=== PATIENT | male | born 1935 | race Caucasian/White ===

== ENCOUNTER 2020-10-18 23:26 | Inpatient (IN) | payer MEDICARE ==
[2020-10-19] MEDS ORDERED: Sodium Chloride 0.9% 100 ML ONE (00:46)
[2020-10-19] MEDS ORDERED: cefTRIAXone\\ROCEPHIN 1 GM VIAL ONE (00:46)
[2020-10-19 00:53] LABS: Bacteria/HPF 3+ HPF (None Seen); Bilirubin 1+ (Negative); Blood, Urine 2+ (Negative); Clarity Extra Turbid (Clear); Glucose, Urine (Dipstick) Normal (Negative); Ketone, Urine Negative (Negative); Leukocyte 500 Leu/uL (Negative); Nitrite 1+ (Negative); Protein, Urine (Dipstick) 100 mg/dL (Neg-Trace); RBC/HPF 21-50 HPF (0-3); Specific Gravity, Urine 1.016 (1.002-1.036); Squamous Epithelial 0-3 HPF (0-3); WBC/HPF Greater than 50 HPF (0-3); pH, Urine 5.5 (5.0-9.0)
[2020-10-19 00:56] LABS: Band 17 % (5-11); Lymphocytes 1 % (21-51); MDiff Complete? YES; Macrocytosis SLIGHT = 6-15 cells (100X) (0-5/hpf); Mean Corpuscular HGB CONC 36.9 g/dL (32.0-36.0); Mean Corpuscular Hemoglobin 36.9 pg (27.0-31.0); Mean Platelet Volume 7.7 fL (7.4-10.4); Monocytes 5 % (0-10); Neutrophil 77 % (42-75); Platelet Count 166 thou/uL (130-400); Platelet Morphology Comment Appears Adequate; RBC Distribution Width 11.8 % (11.5-14.5); Red Blood Cell (RBC) Count 3.24 mill/uL (4.70-6.10); White Blood Cell (WBC) Count 26.9 thou/uL (4.8-10.8)
[2020-10-19 01:01] LABS: ALT (SGPT) 17 U/L (8-55); AST (SGOT) 24 U/L (5-34); Albumin 3.3 g/dL (3.4-4.8); Alkaline Phosphatase 78 U/L (40-110); Anion Gap 13 mmol/L (10-20); BUN (Urea Nitrogen) 35 mg/dL (8.4-25.7); Bilirubin, Total 0.8 mg/dL (0.2-1.2); Calc. Creatinine Clearance 0 mL/min (70-130); Calcium 8.7 mg/dL (7.8-10.44); Carbon Dioxide 26 mmol/L (23-31); Chloride 99 mmol/L (98-107); Estimated GFR-MDRD 43; Globulin 2.8 g/dL (2.4-3.5); Glucose 143 mg/dL (83-110); Potassium 3.5 mmol/L (3.5-5.1); Protein, Total 6.1 g/dL (5.8-8.1); Sodium 134 mmol/L (136-145)
[2020-10-19] MEDS ORDERED: Ondansetron ODT 4 MG TAB PO PRN (04:11)
[2020-10-19] MEDS ORDERED: Ondansetron PF 4 MG/2 ML Vial IVP PRN (04:11)
[2020-10-19] MEDS ORDERED: Calcium Carbonate 500 MG ChewTAB PO PRN (04:11)
[2020-10-19] MEDS ORDERED: Acetaminophen 650 MG Suppository PR PRN (04:11)
--- NOTE | 2020-10-19 04:15 | PDOC.HHP ---
Hospitalist HPI - History of Present Illness fever urinary retention History of Present Illness: Case of an 85y/o male with pmhx of htn and hld who comes to hospital due to urinary retention and fever. patient is extremely poor historian and who borught him to hospital is not present during my evaluation. patient states he was on his usual state of health until 2-3 days ago when he started to have some fever and difficulty voiding, this lather apparently got worse and patient was not able to void for a day for which he came to hospital for evaluation. and ed they placed a anderson which only got 300ml of urine but it had a foul smell and was very cloudy. patient also had parameters for sepsis for which hospitalist was called for further evaluation and management. Hospitalist ROS - Review of Systems All other systems reviewed; all pertinent +/- noted in HPI/Subj Hospitalist History - Past Surgical History Past Surgical History: reports: Appendectomy Other Surgical History: testicle removed - Social History Smoking Status: Never smoker Alcohol: reports: None Drugs: reports: none - Exam General Appearance: NAD, awake alert Eye: PERRL, anicteric sclera ENT: normocephalic atraumatic, no oropharyngeal lesions Neck: supple, symmetric, no JVD, no thyromegaly Heart: RRR, no murmur, no gallops Respiratory: CTAB, no wheezes, no rales, no ronchi Gastrointestinal: soft, non-distended, normal bowel sounds, tender to palpation Extremities: no cyanosis, no clubbing, no edema Skin: normal turgor, no lesions, no rashes Neurological: cranial nerve grossly intact, normal sensation to touch, no wea kness Musculoskeletal: normal tone, normal strength, no muscle wasting Psychiatric: normal affect, normal behavior, A&O x 3 Hospitalist Results - Labs Result Diagrams: 10/19/20 00:27 10/19/20 00: Lab results: WBC 26.9 thou/uL (4.8-10.8) H 10/19/20: Hgb 12.0 g/dL (14.0-18.0) L 10/19/20: Hct 32.4 % (42.0-52.0) L 10/19/20 00: MCV 100.0 fL (78.0-98.0) H 10/19/20 00:27 Plt Count 166 thou/uL (130-400) 10/19/20 00: Band Neuts % (Manual) 17 % (5-11) H 10/19/20 00:27 Sodium 134 mmol/L (136-145) L 10/19/20 00: Potassium 3.5 mmol/L (3.5-5.1) 10/19/20: Chloride 99 mmol/L (98-107) 10/19/20 00: Carbon Dioxide 26 mmol/L (23-31) 10/19/20: BUN 35 mg/dL (8.4-25.7) H 10/19/20: Creatinine 1.56 mg/dL (0.7-1.3) H 10/19/20: Glucose 143 mg/dL (83-110) H 10/19/20: Lactic Acid 1.3 mmol/L (0.5-2.2) 10/19/20: Calcium 8.7 mg/dL (7.8-10.44) 10/19/20 00: Total Bilirubin 0.8 mg/dL (0.2-1.2) 10/19/20: AST 24 U/L (5-34) 10/19/20: ALT 17 U/L (8-55) 10/19/20 00: Alkaline Phosphatase 78 U/L (40-110) 10/19/20 00: Serum Total Protein 6.1 g/dL (5.8-8.1) 10/19/20 00: Albumin 3.3 g/dL (3.4-4.8) L 10/19/20 00: Urine Ketones Negative mg/dL (Negative) 10/19/20 00:10 Urine Blood 2+ (Negative) A 10/19/20: Urine Nitrite 1+ (Negative) A 10/19/20:10 Ur Leukocyte Esterase 500 Arleen/uL (Negative) A 10/19/20: Urine RBC 21-50 HPF (0-3) A 10/19/20: Urine WBC Greater than 50 HPF (0-3) A 10/19/20 00: Ur Squamous Epith Cells 0-3 HPF (0-3) 10/19/20 00:10 Urine Bacteria 3+ HPF (None Seen) A 10/19/20 00:10 Hospitalist H&P A/P - Problem (1) Sepsis Code(s): A41.9 - SEPSIS, UNSPECIFIED ORGANISM Status: Acute (2) UTI (urinary tract infection) Status: Acute (3) CHRISTIAN (acute kidney injury) Code(s): N17.9 - ACUTE KIDNEY FAILURE, UNSPECIFIED Status: Acute - Plan Plan: Case of an 85y/o male with sepsis secondary to uti - elevated wbc + report of quantified fever at 103 + tachycardiac w a u/a consistent w uti - normal LA - f/u u/c and b/c - started on rocephin - ivfs christian - creatinine at 1.5 unclear base, will treat as acute - ivfs - renal u/s - f/u renal function and u/o - likely secondary to bph. prostatitis? - anderson cath placed - will start flomax
[2020-10-19 04:25] LABS: SARS-CoV-2 MS2 Positive; SARS-CoV-2 N Gene Negative; SARS-CoV-2 S Gene Negative; SARS-CoV-2 by NAA Not Detected (NotDetected); SARS-CoV-2 orf1ab Negative
[2020-10-19] MEDS: Sodium Chloride 0.9% 1,000 ML IV SCH ×2 (05:35→17:43)
[2020-10-19 05:45] VITALS: BMI 25.1
--- NOTE | 2020-10-19 08:10 | RAD ---
PORTABLE CHEST: INDICATION: Fever. FINDINGS: Lungs are clear. No infiltrate or vascular congestion. Heart and mediastinum unremarkable. IMPRESSION: No acute process. POS: OFF
--- NOTE | 2020-10-19 08:47 | ULT ---
BILATERAL RENAL ULTRASOUND: Date: 10/19/2020 HISTORY: Renal failure. FINDINGS: Both kidneys measure approximately 10.0 cm in length. No hydronephrosis. There is an exophytic cyst i n the superior right kidney measuring 1.0 cm. There is a hyperechoic mass in the mid right renal tiera ex measuring 1.0 cm. Left kidney unremarkable with no hydronephrosis or mass. Urinary bladder is contracted with Chavira catheter in place. IMPRESSION: 1. Small exophytic cyst right kidney. 2. Hyperechoic mass mid right renal cortex. 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 Recommend follow-up ultrasound to confirm stability or elective follow-up CT for further characterization. POS: OFF
[2020-10-19] MEDS: Enoxaparin Sodium 40 MG/0.4 ML SYRINGE SC SCH (10:03)
--- NOTE | 2020-10-19 16:43 | CT ---
CT Abdomen Pelvis WO Con 10/19/2020 4:20 PM HISTORY: UTI, leukocytosis. COMPARISON: None. Technique: Multiple contiguous axial CT images are obtained through the abdomen and pelvis without IV contrast. Coronal reformats are provided. FINDINGS: This examination is limited for the evaluation of solid organs and vascular structures due to the lac k of intravenous contrast. Lower Chest: Vascular calcifications are seen in the coronary arteries and visualized lower thoracic aorta. Heart is mildly enlarged. Tiny bilateral pleural effusions are present with associated minimal passive atelectasis. Liver: Subcentimeter too small to characterize hypodense lesion is seen in the posterior aspect poste rior segment right hepatic lobe. Gallbladder: Surgically absent. There is evidence of reservoir effect involving the intra and extrahe patic bile ducts. Pancreas: Low attenuation areas seen in the head of the pancreas on axial images, but this appears vo lume averaging with area of fat in this region on sagittal and coronal images and is not thought to represent a pancreatic lesion. Spleen: Grossly normal nonenhanced CT appearance. Adrenals: Grossly normal nonenhanced CT appearance. Kidneys, ureters, urinary bladder: Subcentimeter too small to characterize hypodense lesions seen in the posterior aspect midportion right kidney. Overall symmetric and nonspecific bilateral perinephric stranding is seen. No renal or ureteral calculi are seen bilaterally, and there is no destiny dence of hydronephrosis. Decompressed with Chavira catheter in place. Reproductive Organs: Prostate gland mildly enlarged measuring 5.1 cm in transverse dimensions. Lymph Nodes: No enlarged lymph nodes are seen by CT size criteria. Bowel: Evidence of colonic diverticulosis. Appendix: Not visualized, but there are no secondary signs to suggest appendicitis based on this none nhanced CT scan exam. Peritoneum/retroperitoneum: There is mild stranding and perinephric fluid in a presacral location. No fluid collection is seen. Vessels: Vascular calcifications are seen in the abdominal aorta and involving the iliac arteries. In cidental note is made of a retroaortic left renal vein.. Abdominal Wall: within normal limits. Bones: Multilevel degenerative changes are seen in the spine. Bilateral hip osteoarthritis is present degenerative change are also seen involving the sacroiliac joints bilaterally. IMPRESSION: 1. Tiny bilateral pleural effusions with associated passive atelectasis at each lung base. 2. Mild cardiomegaly. 3. Prominent vascular calcifications. 4. Subcentimeter too small to characterize hypodense lesion posterior segment right hepatic lobe and posterior aspect midportion right kidney. 5. Nonspecific bilateral perinephric stranding without hydronephrosis or perinephric fluid collection . No renal or ureteral calculi are seen bilaterally. Pyelonephritis cannot be excluded based on this nonenhanced CT scan examination. 6. Colonic diverticulosis. 7. Tiny amount of fluid and inflammatory stranding in a presacral location. 8. Postcholecystectomy changes.
--- NOTE | 2020-10-19 17:36 | PDOC.EVN ---
Event Note - Event Note Event Note: We will get a CT abdomen pelvis without contrast. We will continue current antibiotics. Prelim urine cultures indicate gram-negative rods.
[2020-10-19] MEDS: Acetaminophen 325 MG TAB PO PRN (18:02)
[2020-10-19] MEDS ORDERED: Tamsulosin HCl 0.4 MG CAP PO SCH (21:00)
[2020-10-19] MEDS ORDERED: FLU VACC QS2020-21(65YR UP)/PF 240 MCG/0.7 ML SYRINGE IM ONE (21:00)
[2020-10-19] MEDS: Atorvastatin Calcium 10 MG TAB PO SCH (22:08)
[2020-10-19] MEDS: Tamsulosin HCl 0.4 MG CAP PO SCH (22:08)
[2020-10-20] MEDS: Levothyroxine 150 MCG TAB PO SCH (05:50)
[2020-10-20 07:12] LABS: ALT (SGPT) 22 U/L (8-55); AST (SGOT) 23 U/L (5-34); Alkaline Phosphatase 95 U/L (40-110); Anion Gap 12 mmol/L (10-20); BUN (Urea Nitrogen) 21 mg/dL (8.4-25.7); Bilirubin, Total 0.5 mg/dL (0.2-1.2); Calc. Creatinine Clearance 56 mL/min (70-130); Calcium 8.4 mg/dL (7.8-10.44); Carbon Dioxide 24 mmol/L (23-31); Chloride 103 mmol/L (98-107); Estimated GFR-MDRD 69; Globulin 2.8 g/dL (2.4-3.5); Glucose 112 mg/dL (83-110); Protein, Total 5.8 g/dL (5.8-8.1); Sodium 136 mmol/L (136-145)
[2020-10-20 08:22] LABS: Mean Corpuscular HGB CONC 33.5 g/dL (32.0-36.0); Mean Corpuscular Hemoglobin 34.5 pg (27.0-31.0); Mean Platelet Volume 8.6 fL (7.4-10.4); Platelet Count 168 thou/uL (130-400); RBC Distribution Width 11.5 % (11.5-14.5); Red Blood Cell (RBC) Count 3.47 mill/uL (4.70-6.10)
[2020-10-20] MEDS ORDERED: Potassium Chloride 20 MEQ TAB PO SCH (08:45)
[2020-10-20] MEDS ORDERED: Potassium Chloride 10 MEQ in Premix Bag 1 BAG IVPB SCH (08:45)
[2020-10-20] MEDS: Enoxaparin Sodium 40 MG/0.4 ML SYRINGE SC SCH (08:53)
[2020-10-20] MEDS: Acetaminophen 325 MG TAB PO PRN (09:00)
[2020-10-20 09:28] LABS: Band 16 % (5-11); Lymphocytes 9 % (21-51); MDiff Complete? YES; Monocytes 6 % (0-10); Neutrophil 67 % (42-75); Platelet Morphology Comment Appears Adequate; Polychromasia MODERATE = 3-4 cells (100X) (0-2/hpf); Promyelocytes 1 % (0-0); Reactive Lymphocytes 1 % (0-10)
[2020-10-20] MEDS: cefTRIAXone\\ROCEPHIN 2 GM in Sodium Chloride 0.9% 100 ML IVPB SCH (13:51)
--- NOTE | 2020-10-20 15:06 | PDOC.HOSPP ---
- Subjective Encounter Date: 10/20/20 Encounter Time: 11:15 Subjective: Patient up in chair no complaints. - Objective Vital Signs & Weight: Vital Signs (12 hours) Temp Pulse Resp BP BP Pulse Ox 10/20/20 08:00 93 L 10/20/20 07:11 99.2 F 88 17 152/77 H 93 L 10/20/20 04:00 99.8 F H 84 20 150/73 H 93 L Weight Weight 165 lb 5.547 oz I&O: 10/19/20 10/20/20 10/21/20 06:59 06:59 06:59 Intake Total 1300 320 Output Total 1250 300 Balance 50 20 Result Diagrams: 10/20/20 06:31 10/20/20 06:31 Hospitalist ROS - Review of Systems Cardiovascular: denies: chest pain, palpitations, orthopnea, paroxysmal noc. dyspnea, edema, light headedness, other Gastrointestinal: denies: nausea, vomiting, abdominal pain, diarrhea, constipation, melena, hematochezia, other Genitourinary: denies: dysuria, frequency, incontinence, hematuria, retention, other - Medication Medications: Active Medications Generic Name Dose Route Start Last Admin Trade Name Freq PRN Reason Stop Dose Admin Acetaminophen 650 mg 10/19/20 04:11 10/20/20 09:00 Acetaminophen 325 Mg Tab PO 650 mg Q4H PRN Administration Headache/Fever/Mild Pain (1-3) Atorvastatin Calcium 10 mg 10/19/20 21:00 10/19/20 22:08 Atorvastatin Calcium 10 Mg Tab PO 10 mg HS CHASIDY Administration Enoxaparin Sodium 40 mg 10/19/20 09:00 10/20/20 08:53 Enoxaparin Sodium 40 Mg/0.4 Ml Syringe SC 40 mg 0900 CHASIDY Administration Ceftriaxone Sodium 2 gm/ 100 mls @ 200 mls/hr 10/20/20 12:00 10/20/20 13:51 Sodium Chloride IVPB 100 mls Q24HR CHASIDY Administration Levothyroxine Sodium 150 mcg 10/20/20 06:00 10/20/20 05:50 Levothyroxine 150 Mcg Tab PO 150 mcg 0600 CHASIDY Administration Pantoprazole Sodium 40 mg 10/20/20 09:00 10/20/20 08:54 Pantoprazole 40 Mg Tab PO 40 mg DAILY CHASIDY Administration Tamsulosin HCl 0.4 mg 10/19/20 21:00 10/19/20 22:08 Tamsulosin Hcl 0.4 Mg Cap PO 0.4 mg HS CHASIDY Administration - Exam Neck: negative: supple, symmetric, no JVD, no thyromegaly, no lymphadenopathy, no carotid bruit, JVD Heart: negative: RRR, no murmur, no gallops, no rubs, normal peripheral pulses, irregular, diminshed peripheral pulses, murmur present, II/IV, III/IV Respiratory: negative: CTAB, no wheezes, no rales, no ronchi, normal chest expansion, no tachypnea, normal percussion, rales, rhonchi, tachypneic, wheezes Gastrointestinal: negative: soft, non-tender, non-distended, normal bowel sounds, no palpable masses, no hepatomegaly, no splenomegaly, no bruit, no guarding, no rigidity, tender to palpation, distended, diminished bowl sounds, voluntary guarding Hosp A/P (1) Pyelonephritis Code(s): N12 - TUBULO-INTERSTITIAL NEPHRITIS, NOT SPCF ACUTE OR CHRONIC Status: Acute (2) Sepsis Code(s): A41.9 - SEPSIS, UNSPECIFIED ORGANISM Status: Acute (3) Leukocytosis Code(s): D72.829 - ELEVATED WHITE BLOOD CELL COUNT, UNSPECIFIED Status: Acute (4) Hypokalemia Code(s): E87.6 - HYPOKALEMIA Status: Acute (5) Lesion of right [place] kidney Code(s): N28.9 - DISORDER OF KIDNEY AND URETER, UNSPECIFIED Status: Acute - Plan Patient has a hypodense lesion in the posterior aspect of the midportion of the right kidney. I did mention this to the patient's family member and recommended outpatient follow-up. We will continue ceftriaxone for now cultures indicated E. coli will await for sensitivities. However CT abdomen pelvis noncontrast indicated nonspecific bilateral perinephric stranding without hydronephrosis. Will discontinue patient's Chavira catheter and see if he voids.
[2020-10-20] MEDS: Atorvastatin Calcium 10 MG TAB PO SCH (21:07)
[2020-10-20] MEDS: HYDROcodone/Acetaminophen 5/325 mg Tablet PO PRN (21:07)
[2020-10-20] MEDS: Tamsulosin HCl 0.4 MG CAP PO SCH (21:07)
[2020-10-21] MEDS: Levothyroxine 150 MCG TAB PO SCH (05:24)
[2020-10-21 06:51] LABS: Hemoglobin 10.8 g/dL (14.0-18.0); Mean Corpuscular HGB CONC 35.4 g/dL (32.0-36.0); Mean Corpuscular Hemoglobin 36.9 pg (27.0-31.0); Mean Platelet Volume 7.8 fL (7.4-10.4); Platelet Count 186 thou/uL (130-400); RBC Distribution Width 12.3 % (11.5-14.5); Red Blood Cell (RBC) Count 2.92 mill/uL (4.70-6.10); White Blood Cell (WBC) Count 17.1 thou/uL (4.8-10.8)
[2020-10-21 07:07] LABS: Anion Gap 11 mmol/L (10-20); BUN (Urea Nitrogen) 17 mg/dL (8.4-25.7); Calc. Creatinine Clearance 62 mL/min (70-130); Calcium 8.2 mg/dL (7.8-10.44); Carbon Dioxide 26 mmol/L (23-31); Chloride 107 mmol/L (98-107); Estimated GFR-MDRD 77; Glucose 97 mg/dL (83-110); Potassium 3.8 mmol/L (3.5-5.1); Sodium 140 mmol/L (136-145)
[2020-10-21 08:29] LABS: Band 15 % (5-11); Eosinophils 1 % (0-10); Lymphocytes 10 % (21-51); MDiff Complete? YES; Metamyelocyte 1 % (0-0); Monocytes 2 % (0-10); Neutrophil 71 % (42-75); Platelet Morphology Comment Appears Adequate; Polychromasia SLIGHT = 2-3 cells (100X) (0-2/hpf)
[2020-10-21] MEDS: Enoxaparin Sodium 40 MG/0.4 ML SYRINGE SC SCH (08:33)
[2020-10-21] MEDS: HYDROcodone/Acetaminophen 5/325 mg Tablet PO PRN (08:37)
[2020-10-21] MEDS: cefTRIAXone\\ROCEPHIN 2 GM in Sodium Chloride 0.9% 100 ML IVPB SCH (12:03)
--- NOTE | 2020-10-21 14:18 | CON ---
DATE OF CONSULTATION: 10/21/2020 REASON FOR CONSULTATION: Penile pain. CHIEF COMPLAINT: Penile pain. HISTORY OF PRESENT ILLNESS: This is an 85-year-old male, who I have previously seen for enlarged prostate with lower urinary tract symptoms. He was last seen on September 26, 2019, at which point, we elected to continue his tamsulosin. He canceled his followup with me in September 24. He tells me that he developed bladder pain and difficulty urinating this past Monday, at which point, he presented to the emergency room. A catheter was placed draining only 300 mL of urine. However, he met criteria for sepsis due to urinary tract infection and was admitted. He tells me that he has had significant pain in his penis ever since having his catheter placed and notes that his foreskin was not reduced after the initial placement. The catheter was removed yesterday and then replaced as he was unable to urinate. The foreskin was not replaced at this point either. Wound Care has seen the patient and has documented with photography his paraphimosis, but again no action was taken. I was contacted by his [id number], who called my office telling me that he was having this significant penile pain and requested that I see him. In speaking with him today, he tells me that he continues to have the same pain in his penis, but denies bladder pain, flank pain, nausea, or fevers. PAST MEDICAL HISTORY: Reflux, hyperlipidemia, hypothyroidism. SURGICAL HISTORY: Orchiectomy, appendectomy. SOCIAL HISTORY: Nonsmoker. No substance abuse. REVIEW OF SYSTEMS: 12-point review of systems negative except as mentioned in my HPI. PHYSICAL EXAMINATION: GENERAL: No acute distress, conversant. HEENT: Head, normocephalic and atraumatic. Extraocular movements intact. Sclerae anicteric. NECK: Supple. Trachea midline. LUNGS: Unlabored breathing. Symmetric chest expansion. HEART: Regular rate and rhythm. ABDOMEN: Soft, nontender, nondistended. No flank tenderness. No suprapubic tenderness. : Chavira catheter in good position draining yellow urine. He clearly has paraphimosis with his foreskin not reduced and distal edema. SKIN: Warm and dry. EXTREMITIES: No peripheral edema or clubbing. NEUROLOGIC: Alert and oriented x3. PSYCHIATRIC: Normal mood and affect. IMAGING DATA: I personally reviewed his CT scan, which shows Chavira catheter in position and small cyst in his kidney. LABORATORY DATA: Reviewed. White count 26 on admission and 17.1 today. Creatinine 1.56 on admission, 0.93 today. Urine culture has resulted with E coli and Enterobacter, both susceptible to ceftriaxone, which he is currently on. PROCEDURE: I reduced the edema in his distal shaft and was able to replace the foreskin/reduce the foreskin. This was very uncomfortable for him given the length of time that this has been present. ASSESSMENT AND PLAN: Urinary retention, enlarged prostate with lower urinary tract symptoms, acute cystitis, paraphimosis. Paraphimosis has been reduced. I spoke with the charge nurse about proper education on replacing the foreskin after catheter placement as this is not an event that should occur. Given his urine susceptibilities, it appears he can be discharged with Bactrim for 10 days. Continue tamsulosin. I will arrange followup for Chavira removal next week in my office. Job ID: [id number]
--- NOTE | 2020-10-21 15:32 | PDOC.HOSPP ---
- Subjective Encounter Date: 10/21/20 Encounter Time: 10:30 Subjective: Patient up in bed states he feels much better. - Objective Vital Signs & Weight: Vital Signs (12 hours) Temp Pulse Resp BP Pulse Ox 10/21/20 12:00 98.4 F 82 18 150/68 H 92 L 10/21/20 08:00 98.9 F 93 18 175/79 H 95 10/21/20 05:25 98.2 F Weight Weight 165 lb 5.547 oz I&O: 10/20/20 10/21/20 10/22/20 06:59 06:59 06:59 Intake Total 1300 800 Output Total 1250 800 Balance 50 0 Result Diagrams: 10/21/20 06:23 10/21/20 06:23 Hospitalist ROS - Review of Systems Respiratory: denies: cough, dry, shortness of breath, hemoptysis, SOB with excertion, pleuritic pain, sputum, wheezing, other Cardiovascular: denies: chest pain, palpitations, orthopnea, paroxysmal noc. dyspnea, edema, light headedness, other Gastrointestinal: denies: nausea, vomiting, abdominal pain, diarrhea, constipation, melena, hematochezia, other - Medication Medications: Active Medications Generic Name Dose Route Start Last Admin Trade Name Freq PRN Reason Stop Dose Admin Acetaminophen 650 mg 10/19/20 04:11 10/20/20 09:00 Acetaminophen 325 Mg Tab PO 650 mg Q4H PRN Administration Headache/Fever/Mild Pain (1-3) Hydrocodone Bitart/Acetaminophen 1 tab 10/19/20 04:11 10/21/20 08:37 Hydrocodone/Acetaminophen 5/325 Mg Tablet PO 1 tab Q4H PRN Administration Moderate Pain (4-6) Atorvastatin Calcium 10 mg 10/19/20 21:00 10/20/20 21:07 Atorvastatin Calcium 10 Mg Tab PO 10 mg HS CHASIDY Administration Enoxaparin Sodium 40 mg 10/19/20 09:00 10/21/20 08:33 Enoxaparin Sodium 40 Mg/0.4 Ml Syringe SC 40 mg 0900 CHASIDY Administration Ceftriaxone Sodium 2 gm/ 100 mls @ 200 mls/hr 10/20/20 12:00 10/21/20 12:03 Sodium Chloride IVPB 100 mls Q24HR CHASIDY Administration Levothyroxine Sodium 150 mcg 10/20/20 06:00 10/21/20 05:24 Levothyroxine 150 Mcg Tab PO 150 mcg 0600 CHASIDY Administration Pantoprazole Sodium 40 mg 10/20/20 09:00 10/21/20 08:33 Pantoprazole 40 Mg Tab PO 40 mg DAILY CHASIDY Administration Tamsulosin HCl 0.4 mg 10/19/20 21:00 10/20/20 21:07 Tamsulosin Hcl 0.4 Mg Cap PO 0.4 mg HS CHASIDY Administration - Exam Neck: negative: supple, symmetric, no JVD, no thyromegaly, no lymphadenopathy, no carotid bruit, JVD Heart: negative: RRR, no murmur, no gallops, no rubs, normal peripheral pulses, irregular, diminshed peripheral pulses, murmur present, II/IV, III/IV Respiratory: negative: CTAB, no wheezes, no rales, no ronchi, normal chest expansion, no tachypnea, normal percussion, rales, rhonchi, tachypneic, wheezes Gastrointestinal: negative: soft, non-tender, non-distended, normal bowel sounds, no palpable masses, no hepatomegaly, no splenomegaly, no bruit, no guarding, no rigidity, tender to palpation, distended, diminished bowl sounds, voluntary guarding Hosp A/P (1) Pyelonephritis Code(s): N12 - TUBULO-INTERSTITIAL NEPHRITIS, NOT SPCF ACUTE OR CHRONIC Sta tus: Acute (2) Sepsis Code(s): A41.9 - SEPSIS, UNSPECIFIED ORGANISM Status: Acute (3) Leukocytosis Code(s): D72.829 - ELEVATED WHITE BLOOD CELL COUNT, UNSPECIFIED Status: Acute (4) Hypokalemia Code(s): E87.6 - HYPOKALEMIA Status: Acute (5) Lesion of right [place] kidney Code(s): N28.9 - DISORDER OF KIDNEY AND URETER, UNSPECIFIED Status: Acute (6) Phimosis of penis Code(s): N47.1 - PHIMOSIS Status: Acute - Plan Patient has a hypodense lesion in the posterior aspect of the midportion of the right kidney. I did mention this to the patient's family member and recommended outpatient follow-up. We will continue ceftriaxone for now cultures indicated E. coli will await for sensitivities. However CT abdomen pelvis noncontrast indicated nonspecific bilateral perinephric stranding without hydronephrosis. Will discontinue patient's Chavira catheter and see if he voids. 10/21 patient's antibiotic sensitive to ciprofloxacin was sent home with that. Still has a significant leukocytosis unsure of this is mild dysplastic syndrome versus currently resolving infection. Will monitor for 1 more day. Family updated. Urology at bedside to decompress the phimosis Chavira catheter reinserted last night. Patient will follow up with urology as an outpatient.
[2020-10-21] MEDS: Tamsulosin HCl 0.4 MG CAP PO SCH (20:15)
[2020-10-21] MEDS: Atorvastatin Calcium 10 MG TAB PO SCH (20:15)
[2020-10-22] MEDS: Levothyroxine 150 MCG TAB PO SCH (05:01)
[2020-10-22 05:31] LABS: Anion Gap 13 mmol/L (10-20); BUN (Urea Nitrogen) 16 mg/dL (8.4-25.7); Calc. Creatinine Clearance 67 mL/min (70-130); Calcium 8.4 mg/dL (7.8-10.44); Carbon Dioxide 25 mmol/L (23-31); Chloride 106 mmol/L (98-107); Estimated GFR-MDRD 86; Glucose 108 mg/dL (83-110); Potassium 3.6 mmol/L (3.5-5.1); Sodium 140 mmol/L (136-145)
[2020-10-22 05:39] LABS: Band 9 % (5-11); Eosinophils 2 % (0-10); Hemoglobin 11.7 g/dL (14.0-18.0); Hypochromia SLIGHT = 6-15 cells (100X) (0-5/hpf); Lymphocytes 11 % (21-51); MDiff Complete? YES; Macrocytosis SLIGHT = 6-15 cells (100X) (0-5/hpf); Mean Corpuscular HGB CONC 35.9 g/dL (32.0-36.0); Mean Platelet Volume 7.4 fL (7.4-10.4); Monocytes 6 % (0-10); Neutrophil 72 % (42-75); Platelet Count 196 thou/uL (130-400); Platelet Morphology Comment Appears Adequate; RBC Distribution Width 11.9 % (11.5-14.5); Red Blood Cell (RBC) Count 3.15 mill/uL (4.70-6.10); White Blood Cell (WBC) Count 12.9 thou/uL (4.8-10.8)
[2020-10-22] MEDS: Enoxaparin Sodium 40 MG/0.4 ML SYRINGE SC SCH (08:06)
[2020-10-22 11:22] VITALS: BP 159/78; TEMP 98.3
--- NOTE | 2020-10-23 02:59 | DIS ---
DATE OF ADMISSION: 10/19/2020 DATE OF DISCHARGE: 10/22/2020 DISCHARGE DIAGNOSES: 1. Sepsis, resolved. 2. Pyelonephritis. 3. Leukocytosis. 4. Phimosis of penis. HOSPITAL COURSE: The patient is an 85-year-old male, who initially presented to the hospital on 10/19, with complaints of fever and urinary retention. At this time, Chavira catheter was inserted in the ER. He did undergo a CT of abdomen and pelvis, which indicated stranding around his kidneys. He also was noted to have a hypodense lesion in the posterior segment of the right hepatic lobe and also was noted to have a hypodense lesion to the posterior aspect of the midportion of the right kidney. I did discuss this with the patient's [id number] and updated her about this. At this time, patient was put on IV antibiotics. His cultures indicated E. coli and Enterobacter aerogenes. The patient at this time was put on oral antibiotics and discharged home. Since he has the phimosis, Urology reduced that and we had to reinsert the Chavira, since the patient was unable to urinate after the discontinuing of the Chavira. He will follow up with Urology next week for the catheter removal. HOME MEDICATIONS: Will be as of the followin. Cipro 500 mg b.i.d. 2. Florastor 250 daily. 3. Atorvastatin 10 mg daily. 4. Flomax 0.4 at bedtime. 5. Levothyroxine 150 mcg daily. 6. Omeprazole 20 mg daily. PHYSICAL EXAMINATION: VITAL SIGNS: On discharge, temperature 98.3, 78, 18, 93% on room air, 159/78. GENERAL: He is awake, alert, and oriented x3. Does not appear in distress. CV: S1, S2 present. No murmurs, rubs, or gallops. The patient will be discharged. Follow up with primary and Urology. Job ID: [id number]
== END 2020-10-22 13:03 | disposition home or self-care (01) | DRG 872 ==
LOC: ERS 23:26 → T4-B 10-19 02:34 → OBSVTOIN 10-19 10:13
PROVIDERS: ADMIT Internal Medicine; ATTEND Internal Medicine
PROC: 0T9B70Z Drainage of Bladder with Drainage Device, Via Natural or Artificial Opening (ICD-10-PCS; principal; 2020-10-19)
DX: A41.51 Sepsis due to Escherichia coli [E. coli] (principal); N12 Tubulo-interstitial nephritis, not specified as acute or chronic; N17.9 Acute kidney failure, unspecified; Z20.828 Contact with and (suspected) exposure to other viral communicable diseases; Z23 Encounter for immunization; N47.1 Phimosis; K76.89 Other specified diseases of liver; N28.89 Other specified disorders of kidney and ureter; I10 Essential (primary) hypertension; E78.5 Hyperlipidemia, unspecified; Z90.49 Acquired absence of other specified parts of digestive tract; Z79.899 Other long term (current) drug therapy; Z79.890 Hormone replacement therapy
CPT/HCPCS: 36415; 51702; 71045; 74176; 76770; 80048; 80053; 81003; 81015; 83605; 85007; 85025; 85027; 87040; 87077; 87086; 87186; 87635; 87804; 96365; J0696; J1650; J3480; J3490; U0003

== ENCOUNTER 2020-12-01 08:55 | Inpatient (IN) | payer MEDICARE ==
--- NOTE | 2020-12-01 09:28 | CT ---
CT Brain WO Con History: Slip and fall. Trauma Comparison: None. Findings: Longitudinal temporal bone fracture through the mastoids on the right with hemorrhage withi n the mastoid air cells and within the internal auditory canal. Subtle subarachnoid hemorrhage within the left superior frontal sulcus. There is also subdural hemorr kena along the falx anteriorly and the tentorium cerebelli. Extensive chronic microangiopathic changes. No midline shift or mass effect. Subarachnoid hemorrhage is present along the inferior margin of both frontal lobes. Impression: 1. Longitudinal fracture right mastoids with intramastoid hemorrhage as well as hemorrhage within the internal auditory canal. Dedicated temporal bone CT recommended. 2. Subarachnoid hemorrhage along the left superior frontal sulcus as well as along the inferior melanie ns of both right and left frontal poles of the frontal lobes. 3. Subdural hemorrhage along the anterior falx and tentorium cerebelli. ER physician notified of findings via telephone at 9:23 AM.
--- NOTE | 2020-12-01 09:33 | CT ---
CT CERVICAL SPINE NONCONTRAST: DATE: 12/01/2020 HISTORY: cervical trauma. 85-year-old male status post fall. FINDINGS: There is incomplete visualization of significant partial opacification of right middle ear cavity, ri ght mastoid antrum, and some of right mastoid air cells, as well as right external auditory canal. There is subcutaneous emphysema in the right parapharyngeal space, which may be arising from right mi ddle ear cavity or right mastoid air cells. There are no jumped or perched facets. There is no evidence of acute cervical spine fracture. The verito tebral body heights are maintained. There is no prevertebral soft tissue swelling. There are degenerative disc changes and facet osteoarthrosis. IMPRESSION: 1.) Suspected right temporal bone fracture. Recommend temporal bone CT. 2) Cervical spondylosis. 3) no evidence of acute fracture or acute traumatic subluxation of cervical spine.
--- NOTE | 2020-12-01 10:07 | CT ---
TEMPORAL BONE CT WITHOUT CONTRAST: HISTORY: Trauma. Fall. Pain. FINDINGS: Adequate aeration of the paranasal sinuses. Visualized orbits are grossly unremarkable. There is evidence of right periorbital hematoma. Right IAC/temporal bones: The internal auditory canal, cochlea, vestibule and semicircular canals have an appropriate appearanc e and configuration. Vestibular aqueduct is not enlarged. There is opacification of the middle ear. Ossicular chain is intact. Stapedial footplate is appropriately located. Tegmen tympani and tegmen ma stoideum are preserved. There is a longitudinal fracture involving the right temporal bone. Partial opacification of the mastoid air cells. There is abnormal air and soft tissue attenuation in the exte rnal auditory canal. Limited evaluation of the tympanic membrane. Left IAC/temporal bone: The internal auditory canal, cochlea, vestibule and semicircular canals have an appropriate appearanc e and configuration. Vestibular aqueduct is not enlarged. Adequate aeration of the middle ear. The ossicular chain is intact. Stapedial footplate is appropriately located. Tegmen tympani and tegmen ma stoideum are preserved. Adequate aeration of the mastoid air cells. Intraosseous septae are preserved. External auditory canal and tympanic membrane are unremarkable. IMPRESSION: Longitudinal right temporal bone fracture with associated partial opacification of the mastoid air ce lls and middle ear. Posttraumatic changes in the external auditory canal are identified. Transcribed Date/Time: 12/01/2020 10:18 AM
[2020-12-01] MEDS ORDERED: Fentanyl 100 MCG/2 ML VIAL ONE (10:10)
[2020-12-01 10:14] LABS: #Eosinphils 0.1 thou/uL (0.0-0.7); #Lymphocytes 1.3 thou/uL (1.20-3.40); #Monocytes 0.4 thou/uL (0.11-0.59); #Neutrophils 7.2 thou/uL (1.40-6.50); %Basophils 0.5 % (0.0-1.0); %Eosinophils 0.9 % (0.0-10.0); %Lymphocytes 14.3 % (21.0-51.0); %Monocytes 4.1 % (0.0-10.0); %Neutrophils 80.1 % (42.0-75.0); Hemoglobin 12.3 g/dL (14.0-18.0); Mean Corpuscular HGB CONC 34.6 g/dL (32.0-36.0); Mean Corpuscular Hemoglobin 35.4 pg (27.0-31.0); Mean Platelet Volume 7.1 fL (7.4-10.4); Platelet Count 283 thou/uL (130-400); RBC Distribution Width 12.6 % (11.5-14.5); Red Blood Cell (RBC) Count 3.48 mill/uL (4.70-6.10); White Blood Cell (WBC) Count 8.9 thou/uL (4.8-10.8)
[2020-12-01] MEDS ORDERED: CEFAZOLIN 1 GM VIAL ONE (10:28)
[2020-12-01 10:34] LABS: Magnesium 1.7 mg/dL (1.6-2.6); Phosphorus 2.8 mg/dL (2.3-4.7)
[2020-12-01 10:36] LABS: ALT (SGPT) 19 U/L (8-55); AST (SGOT) 23 U/L (5-34); Albumin 3.7 g/dL (3.4-4.8); Alkaline Phosphatase 76 U/L (40-110); Anion Gap 11 mmol/L (10-20); BUN (Urea Nitrogen) 16 mg/dL (8.4-25.7); Bilirubin, Total 0.7 mg/dL (0.2-1.2); Calc. Creatinine Clearance 0 mL/min (70-130); Calcium 9.1 mg/dL (7.8-10.44); Carbon Dioxide 29 mmol/L (23-31); Chloride 102 mmol/L (98-107); Globulin 2.7 g/dL (2.4-3.5); Glucose 116 mg/dL (83-110); Lipase 14 U/L (8-78); Potassium 3.8 mmol/L (3.5-5.1); Protein, Total 6.4 g/dL (5.8-8.1); Sodium 138 mmol/L (136-145)
--- NOTE | 2020-12-01 11:27 | PRG ---
DATE OF SERVICE: 12/01/2020 SUBJECTIVE: The patient was seen and examined. Approximately 70 minutes total was spent in [id number] evaluation of the patient, discussion with the family, and review of all imaging and pertinent records. The patient is an 85-year-old man, who slipped and fell, striking the right occipital region. He is currently alert and nonfocal. Complaining of mild headache, but otherwise reasonably comfortable. He has a bloody otorrhea, which is slowing down significantly. CT scan reveals traumatic subarachnoid hemorrhage scattered throughout the frontal region and frontal parafalcine subdural. There is a right complex mastoid fracture. IMPRESSION AND PLAN: The patient has a skull base fracture with scattered traumatic subarachnoid hemorrhage. No surgical intervention is planned. Follow up CT scan should be performed tomorrow, and if this is stable, he can be mobilized to dismissal with plans for 4-week followup head CT. Recommend antibiotics while his otorrhea is active. Job ID: [id number]
[2020-12-01] MEDS ORDERED: Cyclobenzaprine 10 MG TAB PO PRN (11:54)
[2020-12-01 11:59] VITALS: BMI 20.4
[2020-12-01] MEDS ORDERED: Ondansetron PF 4 MG/2 ML Vial IVP PRN (12:00)
[2020-12-01] MEDS ORDERED: Dextrose 50% Abboject 50 ML SYRINGE SLOW IVP PRN (12:00)
[2020-12-01] MEDS ORDERED: Ondansetron ODT 4 MG TAB PO PRN (12:00)
[2020-12-01] MEDS ORDERED: Acetaminophen 500 MG TAB PO SCH (12:00)
[2020-12-01] MEDS ORDERED: Dextrose 5% in Water 1,000 ML IV PRN (12:00)
[2020-12-01] MEDS ORDERED: traMADol HCl 50 MG TAB ONE (12:31)
[2020-12-01] MEDS: traMADol HCl 50 MG TAB PO PRN (12:33)
[2020-12-01] MEDS ORDERED: HYDROcodone/Acetaminophen 5/325 mg Tablet PO PRN (13:55)
[2020-12-01] MEDS ORDERED: CEFAZOLIN 2 GM in Premix Bag 1 BAG IVPB SCH (14:00)
[2020-12-01] MEDS ORDERED: hydrALAZINE 20 MG/ML VIAL SLOW IVP PRN (14:01)
[2020-12-01] MEDS ORDERED: Loratadine 10 MG TAB PO PRN (14:30)
[2020-12-01] MEDS: Acetaminophen 325 MG TAB PO SCH ×2 (17:50→23:31)
[2020-12-01] MEDS: CEFAZOLIN 2 GM in Premix Bag 1 BAG IVPB SCH (18:25)
[2020-12-01] MEDS: Atorvastatin Calcium 10 MG TAB PO SCH (19:59)
[2020-12-01] MEDS: Senokot S 8.6-50 MG TAB PO SCH (19:59)
[2020-12-01] MEDS: Tamsulosin HCl 0.4 MG CAP PO SCH (19:59)
[2020-12-01] MEDS ORDERED: Famotidine 20 MG TAB PO SCH (21:00)
--- NOTE | 2020-12-01 22:00 | HP ---
REQUESTING PHYSICIAN: Pierce Kaur DO. ATTENDING SURGEON: Axel Schultz DO. CONSULTATIONS: Neurosurgery, Abdiel Petersen MD. HISTORY OF PRESENT ILLNESS: The patient is an 85-year-old male with a past medical history of hyperlipidemia, troubles with memory, and chronic neck pain, who presents after a ground-level fall this morning. The patient was out walking his dog this morning and slipped and fell on the ice and hit the back of his head. The patient denies loss of consciousness. He states he was able to get up and walk himself back to his residence. He lives with his at the [facility]. He is complaining of a headache, worse in the occipital region where he fell and hit his head. He denies any vision changes, nausea, vomiting, chest pain, or shortness of breath. He states he is also having some mild back pain but this is chronic for him. He was brought to the ED and a CT head showed subarachnoid hemorrhage along the left superior frontal sulcus as well as along the inferior margin of both right and left frontal poles of the frontal lobes, subdural hemorrhage along the anterior falx and tentorium cerebelli, and longitudinal fracture of right mastoid with intramastoid hemorrhage as well as hemorrhage within internal auditory canal. Cervical spine CT showed suspected right temporal bone fracture with no evidence of acute fracture to cervical spine. While in the ED, patient's vital signs remained stable, and he was awake and alert and oriented. Neurosurgery was consulted from the ED. ALLERGIES: NONE. PAST MEDICAL HISTORY: Hyperlipidemia, BPH, trouble with memory, chronic neck pain. PAST SURGICAL HISTORY: Appendectomy, testicle removal. SOCIAL HISTORY: The patient lives at a [facility] home with his . He denies smoking or alcohol use. REVIEW OF SYSTEMS: HEENT: Headache. No vision changes. No rhinorrhea or congestion. LUNGS: No cough or shortness of breath. CARDIOVASCULAR: No chest pain. No edema. MUSCULOSKELETAL: Mild muscular back pain and neck pain. No weakness. NEURO: No numbness or tingling. No loss of sensation. No loss of consciousness. No bowel or bladder incontinence GI: No N/V, diarrhea PHYSICAL EXAMINATION: VITAL SIGNS: Blood pressure is 173/69, pulse 81, temperature 97.7, respiratory rate 16, O2 saturation 93% on room air. GENERAL: The patient is resting comfortably in bed. He is awake, alert, and oriented. GCS is 15. HEENT: There is a contusion and hematoma on the right occipital region of head. There is also bloody otorrhea from right ear. EOMI. PERRL. NECK: Mild tenderness to palpation of cervical paraspinal muscles. Trachea is midline. HEART: Regular rate and rhythm. No murmurs, rubs, or gallops. LUNGS: Clear to auscultation bilaterally with good inspiratory and expiratory effort. ABDOMEN: Soft, nontender, and nondistended with positive bowel sounds. EXTREMITIES: Pulses are palpable and symmetric. No edema. Good cap refill. BACK: Atraumatic. Mild tenderness to palpation along right-sided paraspinal muscles. No bony tenderness. NEURO: Cranial nerves II through XII intact. No loss of sensation, nonfocal. Upper and lower extremity motor 5/5. LABORATORY FINDINGS: White blood cell count 8.9, hemoglobin 12.3, hematocrit 35.6, and platelet count 283. Sodium 138, potassium 3.8, BUN 16, creatinine 0.88, lactic acid 1.2, phosphorus 2.8, magnesium 1.7, AST 23, and ALT 19. RADIOGRAPH REPORTS: CT cervical spine, suspected right temporal bone fracture, cervical spondylosis. No acute fracture of cervical spine. Brain CT, longitudinal fracture, right mastoid, with intramastoid hemorrhage as well as hemorrhage within the internal auditory canal, subarachnoid hemorrhage along the left superior frontal sulcus as well as along the inferior margins of both right and left frontal poles, subdural hemorrhage along the anterior falx and tentorium cerebelli. Findings: The patient has a skull base fracture with scattered subarachnoid hemorrhage secondary to trauma. ASSESSMENT: 1. Status post ground-level fall. 2. Skull base fractures with subarachnoid hemorrhage. 3. Bloody otorrhea. 4. History of hyperlipidemia, BPH, chronic neck pain. PLAN: Neurosurgery has been consulted from the ED and does not plan for any surgical intervention. Followup CT scan is scheduled for the morning. If he is stable, plan is he could be discharged with 4-week followup with Neurosurgery. We will start antibiotics secondary to otorrhea. We will manage the symptoms to achieve adequate pain control while not causing acute encephalopathy. Neuro checks q.2 hours for first 8 hours and then q.4 hours after that. The patient will be started on regular diet. We will evaluate tomorrow. The patient was evaluated with Dr. Schultz. Job ID: [id number] MTDD
--- NOTE | 2020-12-02 00:24 | PRG ---
DATE OF SERVICE: 12/01/2020 SUBJECTIVE: The patient was seen this evening during rounds. He was sitting up in bed, resting comfortably and asleep with no signs of acute distress. Nursing reports no acute events. OBJECTIVE: VITAL SIGNS: Temperature 98.3, pulse 68, respirations 18, oxygen saturation 93% on room air, and blood pressure 129/63. ASSESSMENT: 1. Status post ground level fall. 2. Subdural and subarachnoid hemorrhages with pneumocephalus. 3. Right temporal bone fracture. 4. History of dementia, BPH, urinary tract infections, hyperlipidemia, and hypertension. PLAN: Continue current diet and pain regimen. Continue physical and occupational therapy. Continue to monitor GCS. Repeat head CT in the morning. PT, OT, Speech to evaluate the patient. Job ID: [id number]
[2020-12-02] MEDS: CEFAZOLIN 2 GM in Premix Bag 1 BAG IVPB SCH ×3 (02:45→18:34)
[2020-12-02] MEDS: Acetaminophen 325 MG TAB PO SCH ×3 (05:23→18:33)
[2020-12-02] MEDS: Levothyroxine 175 MCG TAB PO SCH (05:23)
[2020-12-02 06:34] LABS: Anion Gap 12 mmol/L (10-20); BUN (Urea Nitrogen) 17 mg/dL (8.4-25.7); Calc. Creatinine Clearance 47 mL/min (70-130); Calcium 8.4 mg/dL (7.8-10.44); Carbon Dioxide 29 mmol/L (23-31); Chloride 103 mmol/L (98-107); Glucose 93 mg/dL (83-110); Magnesium 1.6 mg/dL (1.6-2.6); Potassium 3.8 mmol/L (3.5-5.1); Sodium 140 mmol/L (136-145)
[2020-12-02 06:36] LABS: Phosphorus 3.2 mg/dL (2.3-4.7)
[2020-12-02 07:06] LABS: #Basophils 0.1 thou/uL (0.0-0.2); #Eosinphils 0.2 thou/uL (0.0-0.7); #Lymphocytes 2.4 thou/uL (1.20-3.40); #Monocytes 0.7 thou/uL (0.11-0.59); #Neutrophils 5.8 thou/uL (1.40-6.50); %Basophils 0.7 % (0.0-1.0); %Lymphocytes 26.1 % (21.0-51.0); %Monocytes 7.4 % (0.0-10.0); %Neutrophils 63.8 % (42.0-75.0); Mean Corpuscular HGB CONC 32.6 g/dL (32.0-36.0); Mean Corpuscular Hemoglobin 33.2 pg (27.0-31.0); Mean Platelet Volume 7.7 fL (7.4-10.4); Platelet Count 267 thou/uL (130-400); RBC Distribution Width 12.3 % (11.5-14.5); Red Blood Cell (RBC) Count 3.33 mill/uL (4.70-6.10)
--- NOTE | 2020-12-02 07:14 | CT ---
PRELIMINARY REPORT/[facility]/EMERGENCY AFTER HOURS PROCEDURE EXAM: CT Head Without Intravenous Contrast. CLINICAL HISTORY: Follow up TECHNIQUE: Axial computed tomography images of the head/brain without intravenous contrast. COMPARISON: CT\SR - CT BRAIN WO CON - 12/01/2020 09:12 AM SR. PRICING ANALYST FINDINGS: Again identified is incomplete visualization of a fracture involving the right temporal bon e in the mastoid region. The full extent of this fracture is not visualized. Interhemispheric acute subarachnoid hemorrhage that was seen on the study from yesterday is no longer visible. There is a small amount of probable subarachnoid blood in the subfrontal regions, especially on the right, and there is modest generalized increased density in the cerebral spinal flu id overlying both cerebral hemispheres compatible with diluted blood. High density in the falx and tentorium is unchanged and remains very thin. There is now a small amount of high-density material in each occipital horn of the seeds 13/), likel y representing a small amount of intraventricular blood. This was not evident with a study from yesterday. Otherwise the ventricular system is stable. Modest confluent low density in the cerebral hemispheric white matter on each side is unchanged. No deep white matter lesions are seen. However, a component of modest subfrontal contusion on the right cannot be fully excluded. IMPRESSION: 1. Nondisplaced fracture involving the right temporal bone. The full extent of the fracture is not visualized. Opacification of the mastoid air cells on the right external auditory canal is unchanged. 2. There remains a small amount of acute subarachnoid hemorrhage in the subfrontal regions, but the interhemispheric subarachnoid blood is no longer visible. There is modest generalized increased density in the subarachnoid CSF compatible with dilute blood. 3. A small amount of probable intraventricular hemorrhages seen in the occipital horns bilaterally. 4. A component of modest subfrontal contusion cannot be excluded on these images. 5. No mass-effect is seen. Additional observations are stable. ELECTRONICALLY SIGNED BY: Dylan Palomo MD Dec 02, 2020 3:57:28 AM SR. PRICING ANALYST This report is intended for review by the ordering physician only, in accordance of law. If you recei ve this report in error, please call [facility] at [phone]. FINAL REPORT Exam: Head CT without contrast HISTORY: Trauma. Fall. Follow-up intracranial posttraumatic changes. COMPARISON: 12/01/2020 FINDINGS: Hemorrhage: Previously noted subarachnoid blood has decreased. Small amount of intraventricular hemor rhage is suggested. Small hemorrhagic contusions in the left and right frontal lobe. Minimal associated edema. Stable mild hyperattenuation involving the left and right tentorium. Brain parenchyma: Cortical trotter-white matter differentiation is preserved. No mass effect or midline shift. Basilar cisterns are patent.Stable chronic small vessel ischemic changes of the white matter. Ventricular system: Ventricles and sulci are patent and symmetric. Calvarium: Redemonstration of a right temporal bone fracture with associated posttraumatic changes. Sinuses and mastoid air cells: Partial opacification the right mastoid air cell and middle ear. IMPRESSION: 1. This report is in agreement with initial report by [facility] 2. Redemonstration of right temporal bone fracture 3. Persistent posttraumatic intracranial hemorrhage as described above. Transcribed Date/Time: 12/02/2020 7:33 AM
[2020-12-02] MEDS: Donepezil HCl 5 MG TAB PO SCH (08:08)
[2020-12-02] MEDS: Senokot S 8.6-50 MG TAB PO SCH ×2 (08:08→20:24)
[2020-12-02] MEDS: Polyethylene Glycol 3350 17 GM Packet PO SCH (08:08)
--- NOTE | 2020-12-02 08:56 | PRG ---
DATE OF SERVICE: 12/02/2020 SUBJECTIVE: The patient is now day #2 status post fall with right temporal bone fracture as well as some scattered traumatic subarachnoid hemorrhage. His new CT this morning is stable. He has had resolution of his right-sided otorrhea, but continues to have some hearing dysfunction on that side. He has had minimal headaches, is tolerating a regular diet, ambulating and voiding appropriately. OBJECTIVE: On exam, he is awake, alert, oriented x4. Nonfocal in his neurologic exam. He has some decreased hearing on the right side. ASSESSMENT AND PLAN: The patient is improving during his admission course. There are no plans for acute neurosurgical intervention. I will plan for 4-week outpatient followup with a new head CT since his otorrhea has resolved. His IV Ancef can be discontinued at discharge. No outpatient antibiotics required. Please reach out to Neurosurgery for additional questions or concerns. Job ID: [id number]
[2020-12-02] MEDS ORDERED: Magnesium Sulfate 3 GM in Sodium Chloride 0.9% 100 ML IVPB SCH (09:00)
[2020-12-02] MEDS: traMADol HCl 50 MG TAB PO PRN ×2 (11:03→20:24)
[2020-12-02 17:26] LABS: SARS-CoV-2 MS2 Positive; SARS-CoV-2 N Gene Negative; SARS-CoV-2 S Gene Negative; SARS-CoV-2 by NAA Not Detected (NotDetected); SARS-CoV-2 orf1ab Negative
[2020-12-02] MEDS: Atorvastatin Calcium 10 MG TAB PO SCH (20:24)
[2020-12-02] MEDS: Tamsulosin HCl 0.4 MG CAP PO SCH (20:24)
--- NOTE | 2020-12-02 23:31 | PRG ---
DATE OF SERVICE: 12/02/2020 SUBJECTIVE: The patient was seen this evening during rounds. He was sitting up in bed, resting comfortably and asleep, but no signs of acute distress. Nursing reports no acute events. OBJECTIVE: VITAL SIGNS: Temperature 98.7, pulse 66, respirations 14, oxygen saturation 94% on room air, blood pressure 132/64. ASSESSMENT: 1. Status post ground level fall. 2. Subdural and subarachnoid hemorrhages with associated pneumocephalus, stable. 3. Right temporal bone fracture on the right. 4. History of dementia, benign prostatic hypertrophy, urinary tract infections, hyperlipidemia, and hypertension. PLAN: Continue current diet and pain regimen. Continue physical and occupational therapy. Continue supportive care. The patient is pending discharge home tomorrow to family care with home health. Job ID: [id number]
[2020-12-03] MEDS: Acetaminophen 325 MG TAB PO SCH ×3 (00:02→11:27)
[2020-12-03] MEDS: CEFAZOLIN 2 GM in Premix Bag 1 BAG IVPB SCH ×2 (04:03→11:28)
[2020-12-03] MEDS: Levothyroxine 175 MCG TAB PO SCH (04:58)
--- NOTE | 2020-12-03 06:35 | PRG ---
DATE OF SERVICE: 12/02/2020 SUBJECTIVE: The patient was sitting in bed, eating breakfast this morning. He was awake, alert, and oriented. States that he continues to have some pain including headache and neck pain. Says it is almost the same as it was yesterday. When asked if he was able to work with PT, the patient stated that they had not been to see him yet. In reality they actually did see him yesterday and had documented that he was able to participate. The patient also states that he has been getting up to use the restroom on his own and does feel slightly unsteady on his feet and that he must "take his time." He says this is not his baseline. Tolerating diet with no nausea or vomiting. OBJECTIVE: VITAL SIGNS: Blood pressure 122/61, pulse 63, respiratory rate 12, temperature 98.3, and O2 saturation 94% on room air. GENERAL: The patient awake, alert, and oriented, although does have some problems with memory as stated above. GCS is 15. HEENT: Contusion on right occipital region, EOMI. LUNGS: Nonlabored breathing, good inspiratory and expiratory effort. ABDOMEN: Soft, nondistended. NEURO: Nonfocal, no loss of sensation, good muscular strength of upper and lower extremities. LABORATORY DATA: Hemoglobin 11, hematocrit 33.9, MCV 102. Sodium 140, potassium 3.8, phosphorus 3.2, magnesium 1.6. IMAGING: Brain CT on 12/02/2020 shows a nondisplaced fracture involving right temporal lobe, a small amount of subarachnoid hemorrhage in the subfrontal region, but the interhemispheric subarachnoid blood is no longer visible. No mass effect is seen. ASSESSMENT: 1. Status post ground level fall. 2. Subdural and subarachnoid hemorrhages. 3. Right temporal bone fracture. 4. History of dementia, BPH, hyperlipidemia. PLAN: Continue current diet and pain regimen. Continue working with Physical and Occupational Therapy. Neurosurgery states there is no plan for surgical intervention. They would like the patient to follow up in four weeks with a new head CT. He will continue his IV Ancef until discharge with no outpatient antibiotics required. The plan is for the patient to possibly go to alf at [place]. He and his live at the neighboring facility [facility], [facility]. Case Management is aware of this and is working on this. This patient was seen on morning rounds with Dr. Schultz. Job ID: [id number] [facility]
[2020-12-03] MEDS: Donepezil HCl 5 MG TAB PO SCH (08:00)
[2020-12-03] MEDS: Polyethylene Glycol 3350 17 GM Packet PO SCH (08:00)
[2020-12-03] MEDS: Senokot S 8.6-50 MG TAB PO SCH (08:00)
[2020-12-03] MEDS: traMADol HCl 50 MG TAB PO PRN (12:53)
[2020-12-03 14:41] VITALS: BP 175/72; TEMP 98.3
--- NOTE | 2020-12-04 14:21 | DIS ---
DATE OF ADMISSION: 12/01/2020 DATE OF DISCHARGE: 12/03/2020 CONSULTS: Neurosurgery, Dr. Petersen. PROCEDURES: None. PRIMARY DIAGNOSES: Status post ground level fall, subdural hemorrhage along the anterior falx and tentorium, subarachnoid hemorrhage, right temporal bone fracture, hemorrhage of internal auditory canal, bloody otorrhea. SECONDARY DIAGNOSES: BPH, hyperlipidemia, and chronic neck pain. DISCHARGE MEDICATIONS: 1. Flexeril 5 mg p.o. 3 times a day p.r.n. muscle spasms, #10. 2. Tramadol 50 mg p.o. q.6 hours, #30, no refills. 3. Acetaminophen 650 mg p.o. q.6 hours. 4. Atorvastatin 10 mg p.o. q.h.s. 5. Zyrtec 10 mg p.o. daily. 6. Aricept 5 mg p.o. daily. 7. [place] q.8 hours p.r.n. pain. CONTINUED HOME MEDICATIONS: 1. Levothyroxine 175 mcg p.o. q.a.m. 2. Omeprazole 20 mg p.o. daily. 3. MiraLAX as needed for constipation. 4. Senokot as needed for constipation. 5. Flomax 0.4 mg p.o. h.s. No discontinued medications. HISTORY OF PRESENT ILLNESS AND HOSPITAL COURSE: This is an 85-year-old gentleman with a past medical history of hyperlipidemia, memory trouble, and chronic neck pain, who had a ground level fall. He reports he was walking his dog and slipped and fell on the ice, hitting the back of his head. The patient denied any loss of consciousness. The patient was able to ambulate and walk back to his residence. The patient complained of headache. The patient had no vision changes, nausea, vomiting, chest pain, or shortness of breath. The patient did have some bloody otorrhea in right ear that resolved during his hospital stay. The patient's vitals were stable when he arrived at the ER. The patient's GCS was 15 and remained 15 during his hospital stay. The patient's repeat head CT was stable. The patient was on Ancef during his hospital stay. The patient was able to ambulate safely with physical therapy. The patient was ambulating over 500 feet. The patient's exam was unremarkable including cardiopulmonary and GI exam. The patient's vital signs were stable. The patient was deemed stable for discharge back to his independent living facility with his spouse with Home Health, PT, OT, Speech, and retirement. DISPOSITION: Stable. DISCHARGE INSTRUCTIONS: 1. Location: Home with Home Health. 2. Diet: Regular diet as tolerated. 3. Activity: Activity as tolerated. 4. Followup: Follow up with Dr. Petersen in 4 weeks. No continued oral antibiotics needed per Neurosurgery. 5. No need to follow up with Trauma Services. 6. The [place] Prescription Monitoring Program was accessed and appropriate. This is just a summary of the hospital stay. Please see the entire medical records for details. Job ID: [id number]
--- NOTE | 2020-12-05 14:21 | EKG ---
Test Reason : FALL Blood Pressure : / mmHG Vent. Rate : 077 BPM Atrial Rate : 077 BPM P-R Int : 214 ms QRS Dur : 092 ms QT Int : 408 ms P-R-T Axes : 083 074 059 degrees QTc Int : 461 ms Sinus rhythm with 1st degree A-V block Anteroseptal infarct , age undetermined Abnormal ECG Confirmed by STERLING CASEY DO ([id number]), managing editor NELSON TAVERA ([id number]) on 12/05/2020 2:20:37 PM Referred By: Confirmed By:STERLING CASEY DO
== END 2020-12-03 14:42 | disposition home health service (06) | DRG 87 ==
LOC: ERS 08:55 → SURG A 11:36 → OBSVTOIN 11:53
PROVIDERS: ADMIT Surgery; ATTEND Surgery
DX: S06.6X0A Traumatic subarachnoid hemorrhage without loss of consciousness, initial encounter (principal); N40.0 Benign prostatic hyperplasia without lower urinary tract symptoms; S06.5X0A Traumatic subdural hemorrhage without loss of consciousness, initial encounter; S02.19XA Other fracture of base of skull, initial encounter for closed fracture; I10 Essential (primary) hypertension; E78.5 Hyperlipidemia, unspecified; W01.0XXA Fall on same level from slipping, tripping and stumbling without subsequent striking against object, initial encounter; G93.89 Other specified disorders of brain; N40.1 Benign prostatic hyperplasia with lower urinary tract symptoms; R40.2412 Glasgow coma scale score 13-15, at arrival to emergency department; S09.91XA Unspecified injury of ear, initial encounter; F03.90 Unspecified dementia, unspecified severity, without behavioral disturbance, psychotic disturbance, mood disturbance, and anxiety; Z20.822 Contact with and (suspected) exposure to COVID-19; Z90.49 Acquired absence of other specified parts of digestive tract; Z90.79 Acquired absence of other genital organ(s); Z91.81 History of falling
CPT/HCPCS: 36415; 70450; 70480; 72125; 80048; 80053; 83605; 83690; 83735; 84100; 85025; 86850; 86900; 86901; 87635; 93005; 96365; 96375; G0378; J0360; J0690; J3010; J3475; J3490; U0003; U0005

== ENCOUNTER 2020-12-10 10:58 | Inpatient (IN) | payer MEDICARE ==
--- NOTE | 2020-12-10 11:55 | CT ---
CT Cervical Spine WO Con Indication: History of recent fall and neck injury COMPARISON: Prior CT of the cervical spine dated December 01, 2020 FINDINGS: Spinal alignment: No acute malalignment. Craniocervical junction: Within normal limits. Fracture: None. Vertebral body heights: Maintained. Prevertebral soft tissues:Normal appearing. Cervical spine degenerative change: The moderate multilevel cervical spondylosis is stable. Lung apices: Clear. The nondisplaced right temporal bone fracture is unchanged without evidence of displacement. IMPRESSION: 1. No acute fracture subluxation of the cervical spine. 2. Stable right temporal bone fracture. 3. Stable moderate cervical spondylosis.
[2020-12-10 12:04] LABS: Hemoglobin 11.9 g/dL (14.0-18.0); Mean Corpuscular HGB CONC 33.6 g/dL (32.0-36.0); Mean Corpuscular Hemoglobin 33.7 pg (27.0-31.0); Mean Platelet Volume 7.5 fL (7.4-10.4); Platelet Count 259 thou/uL (130-400); RBC Distribution Width 12.1 % (11.5-14.5); Red Blood Cell (RBC) Count 3.53 mill/uL (4.70-6.10)
[2020-12-10 12:16] LABS: ALT (SGPT) 13 U/L (8-55); AST (SGOT) 37 U/L (5-34); Albumin 3.4 g/dL (3.4-4.8); Alkaline Phosphatase 78 U/L (40-110); Anion Gap 14 mmol/L (10-20); BUN (Urea Nitrogen) 16 mg/dL (8.4-25.7); Bilirubin, Total 0.8 mg/dL (0.2-1.2); CK (CPK) 1417 U/L (30-200); Calc. Creatinine Clearance 0 mL/min (70-130); Carbon Dioxide 27 mmol/L (23-31); Chloride 94 mmol/L (98-107); Globulin 3.3 g/dL (2.4-3.5); Glucose 110 mg/dL (83-110); Protein, Total 6.7 g/dL (5.8-8.1); Sodium 131 mmol/L (136-145)
[2020-12-10 12:22] LABS: #Basophils 0.1 thou/uL (0.0-0.2); #Lymphocytes 1.5 thou/uL (1.20-3.40); #Monocytes 1.1 thou/uL (0.11-0.59); #Neutrophils 16.2 thou/uL (1.40-6.50); %Lymphocytes 8.1 % (21.0-51.0); %Neutrophils 85.6 % (42.0-75.0)
[2020-12-10 12:23] LABS: Band 6 % (5-11); Lymphocytes 5 % (21-51); MDiff Complete? YES; Monocytes 4 % (0-10); Neutrophil 85 % (42-75); Platelet Morphology Comment Appears Adequate; Polychromasia SLIGHT = 2-3 cells (100X) (0-2/hpf)
[2020-12-10 12:30] LABS: Bilirubin Negative (Negative); Blood, Urine 2+ (Negative); Clarity Turbid (Clear); Glucose, Urine (Dipstick) Normal (Negative); Ketone, Urine Negative (Negative); Leukocyte 500 Leu/uL (Negative); Nitrite Negative (Negative); Protein, Urine (Dipstick) 50 mg/dL (Neg-Trace); Specific Gravity, Urine 1.017 (1.002-1.036); Squamous Epithelial None Seen HPF (0-3); Urobilinogen Normal mg/dL (Less than 2); WBC/HPF Greater than 50 HPF (0-3); pH, Urine 6.5 (5.0-9.0)
[2020-12-10 12:35] LABS: CKMB 2.5 ng/mL (0-6.6)
[2020-12-10 12:44] LABS: Bacteria/HPF 3+ HPF (None Seen)
--- NOTE | 2020-12-10 12:50 | RAD ---
EXAM: Portable chest PROVIDED CLINICAL HISTORY: Fall COMPARISON: 10/19/2020 FINDINGS: Cardiac and mediastinal silhouette is within normal limits. No focal consolidation, pleural fluid or pneumothorax evident. IMPRESSION: No evidence for an acute cardiopulmonary process.
--- NOTE | 2020-12-10 13:32 | PDOC.FPRHP ---
- History of Present Illness Chief Complaint: falls, weakness History of Present Illness: Pt is a 85 yo M with PMH of Dementia, HLD, recurrent UTI, BPH, chronic neck pain, hypothyroidism, GERD who presents to the ED from [facility] after recurring falls and confusion x1 week. Patient was recently discharged from the trauma service on 12/04 where he sustained a recent Right temporal bone fx leading to a subdural hemorrhage, subarachnoid hemorrhage, and hemorrhage of internal auditory canal. Per half-way report, patient has been falling and weak, although patient denies this report. He is pleasantly demented and denies any issues or concerns besides occasional dysuria. No CP, vision changes, DOYLE, abdominal pain, N/V, melena. He is A&Ox2. ED Course: 2g Rocephin, 1 L fluids - Allergies/Adverse Reactions Allergies Allergy/AdvReac Type Severity Reaction Status Date / Time No Known Drug Allergies Allergy Verified 12/10/20 17:44 - Home Medications Medication Instructions Recorded Confirmed Type Atorvastatin Calcium 10 mg PO QPM 10/19/20 12/10/20 History Omeprazole 20 mg PO DAILY 10/19/20 12/10/20 History Tamsulosin HCl [Flomax] 0.4 mg PO HS 10/19/20 12/10/20 History Cetirizine HCl [Zyrtec] 10 mg PO DAILY PRN 12/01/20 12/10/20 History Levothyroxine Sodium 175 mcg PO QAM 12/01/20 12/10/20 History [Levothyroxine] Polyethylene Glycol 3350 [Miralax] 17 gm PO DAILY pk 12/03/20 12/10/20 Rx Sennosides/Docusate Sodium 2 tab PO BID tab 12/03/20 12/10/20 Rx [Senokot S] traMADol HCl [Ultram] 50 mg PO Q6H PRN #30 tab 12/03/20 12/10/20 Rx Acetaminophen [Tylenol Regular 650 mg PO Q6HR PRN 12/10/20 12/10/20 History Strength] - History PMHx: Dementia, HLD, recurrent UTI, BPH, chronic neck pain, recent subdural hemorrhage, subarachnoid hemorrhage, Right temporal bone fx and hemorrhage of internal auditory canal, hypothyroidism, GERD PSHx: appendectomy, orchiectomy FHx: non contributory Social: denies smoking or alcohol. [facility] - Review of Systems ROS unobtainable: due to mental status (patient denies all ROS, but does not believe it to be accurate based on [facility] staff report) - Vital signs BP: 140/62 HR: 71 RR: 16 Tmax: 98.2 Pox: 96% on RA Wt: 34.56 kg - Physical Exam Constitutional: NAD HEENT: normocephalic and atraumatic, PERRLA, EOMI, conjunctiva clear, MMM Neck: supple Heart: RRR, normal S1/S2 Lungs: CTAB, no respiratory distress Abdomen: soft, non-tender, bowel sounds present Musculoskeletal: normal structure, normal tone Neurological: no focal deficit, CN II-XII intact -Neurological: hard to conduct a full neuro exam as patient has a hard time following commands Skin: no rash/lesions Heme/Lymphatic: no unusual bruising or bleeding Psychiatric: normal mood and affect -Psychiatric: his recent memory is not intact. He is pleasantly demented. A&Ox2 FMR H&P: Results - Labs Result Diagrams: 12/11/20 03:57 12/11/20 03:57 Lab results: WBC 20.0 thou/uL (4.8-10.8) H 12/10/20 10:59 Hgb 11.9 g/dL (14.0-18.0) L 12/10/20 10:59 Hct 35.3 % (42.0-52.0) L 12/10/20 10:59 MCV 100.0 fL (78.0-98.0) H 12/10/20 10:59 Plt Count 259 thou/uL (130-400) 12/10/20 10:59 Neutrophils % 85.6 % (42.0-75.0) H 12/10/20 10:59 Band Neuts % (Manual) 6 % (5-11) 12/10/20 10:59 Sodium 131 mmol/L (136-145) L 12/10/20 10:59 Potassium 4.0 mmol/L (3.5-5.1) 12/10/20 10:59 Chloride 94 mmol/L (98-107) L 12/10/20 10:59 Carbon Dioxide 27 mmol/L (23-31) 12/10/20 10:59 BUN 16 mg/dL (8.4-25.7) 12/10/20 10:59 Creatinine 0.98 mg/dL (0.7-1.3) 12/10/20 10:59 Glucose 110 mg/dL (83-110) 12/10/20 10:59 Calcium 9.0 mg/dL (7.8-10.44) 12/10/20 10:59 Total Bilirubin 0.8 mg/dL (0.2-1.2) 12/10/20 10:59 AST 37 U/L (5-34) H 12/10/20 10:59 ALT 13 U/L (8-55) 12/10/20 10:59 Alkaline Phosphatase 78 U/L (40-110) 12/10/20 10:59 Creatine Kinase 1417 U/L (30-200) H 12/10/20 10:59 CK-MB (CK-2) 2.5 ng/mL (0-6.6) 12/10/20 11:23 Serum Total Protein 6.7 g/dL (5.8-8.1) 12/10/20 10:59 Albumin 3.4 g/dL (3.4-4.8) 12/10/20 10:59 Urine Ketones Negative mg/dL (Negative) 12/10/20 11:35 Urine Blood 2+ (Negative) A 12/10/20 11:35 Urine Nitrite Negative (Negative) 12/10/20 11:35 Ur Leukocyte Esterase 500 Arleen/uL (Negative) A 12/10/20 11:35 Urine RBC 4-6 HPF (0-3) A 12/10/20 11:35 Urine WBC Greater than 50 HPF (0-3) A 12/10/20 11:35 Ur Squamous Epith Cells None Seen HPF (0-3) 12/10/20 11:35 Urine Bacteria 3+ HPF (None Seen) A 12/10/20 11:35 - EKG Interpretation EKst degree heart block, no ST changes, regular rate - Radiology Interpretation Chest x-ray Status: report reviewed by me (no evidence for an acute cardiopulmonary process) CT scan - head Status: image reviewed by me (stable chronic subarachnoid bleed) Other Status: report reviewed by me (CT neck: stable R temporal bone fracture satble moderate cervical spondylosis no acute fracture subluxation of the cervical spine.) FMR H&P: A/P - Plan Fall resulting in rhabdo -CK elevated in ED at 1417 -s/p 1L in ED -continue with MIVF -recheck CK in AM -PT/ OT consulted UTI -complicated as he is a male -patient has history of recurrent UTIs -Was treated in 10/09 for a UTI which grew Enterobacteriae and E coli, sensitive to Rocephin -received 2g Rocephin in ED, will continue with Rocephin pending sensitives and culture Encephalopathy -likely 2/2 infection vs rhabdo -patient does have dementia at baseline -continue home Aricept -CT brain showed stable chronic subdural bleed -work to reorient patient -will treat infection and rhabdo and monitor mental status elevated trop -initial trop elevated at .2 -patient denies CP -EKG shows no ST changes -will trend HLD -aware, continue home meds BPH -aware, continue home Flomax chronic neck pain -aware, continue home meds hypothyroidism -aware, TSH elevated, so will need to adjust med GERD -aware, continue home meds Dispo: admit to tele, inpatient for UTI, rhabdo and elevated trop. PT/OT pending Fluids: mIVF @75mL/hr Diet: HH Code: FULL DVT ppx: SCDs given recent bleed FMR H&P: Upper Level - Plan Date/Time: 12/10/20 1332 85 y/o M form [facility] with recent placement after a fall with subarachnoid hemorrahge discharge 12/04, brought to ER due to AMS and found down at half-way. Has been having increased falls over the last week. Does endorse burning with urination, but has frequently had this problem. Pt does not remember nay of these events and states he feels just fine and came from home. ER course: Given 1 L NS in ER. found to have elevated CK, WBC and UTI. CT brain does not show any acute changes, but findings of old subarachnoid hemorrhage present and R old temporal fracture stable. 85 y/o Male, admitted for acute metabolic encephalopathy 2/2 UTI And rhabdomyolysis from being down on ground after a fall. 1. Metabolic encephalopathy - likely 2/2 UTI and rhabdo - will continue IVF hydration and IV rocephin therapy as previous Urine ccx sensitive to rocephin - culture urine and adjust antibiotics - head ct no acute findings, stable subarachnoid bleed. grossly normal neuro exam. 2. Complicated UTI - hx of acute cystitis with urine ccx enterobacter and e coli sensitive to Rocephin in 09/2020. - will continue rocephin at this time and adjust antibiotics if indicated once susceptibility result. - Hx of BPH with lower urinary tract symptoms. 3. Rhabdomyolysis - CK 1415 - IVF's of NS @ 75 ml/hr and repeat BMP and CK in 12 hours. - no CHRISTIAN with cr 0.93 and 73 GFR - likely from falling and being down for extended amount of time. 4. Indeterminantly elevated troponins - continue to trend - EKG rate 70, SR with 1st degree block, No ST segment changes. - most likely 2/2 from acute illness, no chest pain. will treat by treating illness. 5. Hx of Hypothyroidism - TSH 5.1, levothyroxine needs to be titrated up 6. Hx of traumatic subarachnoid hemorrhage without loss of consciousness - stable on CT on admission, no further acute bleeding 7. Hx of BPH - continue home meds 8. Hx of GERD - continue home meds 9. Hx of dementia at baseline I, Pari Zelaya, have evaluated this patient and agree with findings/plan as outlined by product management intern resident. Pertinent changes/additions are listed here. Addendum - Attending - Attending Attestation Date/Time: 12/11/202133 I personally evaluated the patient and discussed the management with the team on 12/10. I agree with the History, Examination, Assessment and Plan documented above with any addition or exceptions noted below.
[2020-12-10] MEDS ORDERED: cefTRIAXone\\ROCEPHIN 2 GM VIAL ONE (13:42)
--- NOTE | 2020-12-10 13:45 | CT ---
CT BRAIN WITHOUT CONTRAST: HISTORY: An 85-year-old male status post fall yesterday with head trauma. COMPARISON: 12/02/2020. TECHNIQUE: Multiple contiguous axial images were obtained in a CT of the brain without contrast. Sagittal and c oronal reformats were performed. FINDINGS: There is a low-density extraaxial fluid collection along the left frontal and parietal convexities me asuring 6 mm in greatest dimension. A small area of hyperdensity in the center of this may represent a normal vessel, but a small amount of acute hemorrhage cannot be entirely excluded. No midline vanessa ft or downward herniation is seen. There are scattered hypodensities in subcortical and periventricu lar white matter, likely secondary to small-vessel ischemic disease. The calvarium and overlying soft tissues are unremarkable. The visualized paranasal sinuses and left mastoid air cells are well aerated. Fluid is seen in the right mastoid air cells and middle ear. T here is also fluid in the right external auditory canal. IMPRESSION: 1. 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 A small amount of acute on chronic blood cannot be entirely excluded, but the hyperdensity r unning through this region most likely represents a venous structure. 2. Right mastoid air cell opacification and middle ear opacification. POS: AH
[2020-12-10] MEDS ORDERED: Acetaminophen 325 MG TAB PO PRN ×2 (14:03→21:12)
[2020-12-10] MEDS ORDERED: Ondansetron ODT 4 MG TAB PO PRN (14:03)
[2020-12-10] MEDS ORDERED: Lactated Ringer's 1,000 ML IV SCH ×2 (14:15→14:32)
[2020-12-10 15:06] LABS: Troponin I 0.162 ng/mL (< 0.028)
[2020-12-10 18:05] LABS: Troponin I 0.168 ng/mL (< 0.028)
[2020-12-10] MEDS ORDERED: Loratadine 10 MG TAB PO PRN (21:22)
[2020-12-11 05:14] LABS: #Eosinphils 0.1 thou/uL (0.0-0.7); #Lymphocytes 1.6 thou/uL (1.20-3.40); #Monocytes 0.9 thou/uL (0.11-0.59); %Basophils 0.2 % (0.0-1.0); %Eosinophils 0.4 % (0.0-10.0); %Lymphocytes 10.1 % (21.0-51.0); %Monocytes 5.7 % (0.0-10.0); %Neutrophils 83.6 % (42.0-75.0); Hemoglobin 9.5 g/dL (14.0-18.0); Mean Corpuscular HGB CONC 36.4 g/dL (32.0-36.0); Mean Corpuscular Hemoglobin 36.7 pg (27.0-31.0); Mean Platelet Volume 7.4 fL (7.4-10.4); Platelet Count 249 thou/uL (130-400); RBC Distribution Width 12.3 % (11.5-14.5); White Blood Cell (WBC) Count 15.6 thou/uL (4.8-10.8)
[2020-12-11 05:30] LABS: SARS-CoV-2 PCR by NAA Not Detected (NotDetected)
[2020-12-11 05:35] LABS: ALT (SGPT) 19 U/L (8-55); AST (SGOT) 76 U/L (5-34); Albumin 2.7 g/dL (3.4-4.8); Alkaline Phosphatase 78 U/L (40-110); Anion Gap 14 mmol/L (10-20); BUN (Urea Nitrogen) 14 mg/dL (8.4-25.7); Bilirubin, Total 0.6 mg/dL (0.2-1.2); CK (CPK) 2624 U/L (30-200); Calc. Creatinine Clearance 70 mL/min (70-130); Calcium 8.2 mg/dL (7.8-10.44); Carbon Dioxide 24 mmol/L (23-31); Chloride 97 mmol/L (98-107); Globulin 2.6 g/dL (2.4-3.5); Glucose 87 mg/dL (83-110); Potassium 3.7 mmol/L (3.5-5.1); Protein, Total 5.3 g/dL (5.8-8.1); Sodium 131 mmol/L (136-145)
[2020-12-11] MEDS: Levothyroxine 175 MCG TAB PO SCH (05:46)
--- NOTE | 2020-12-11 07:00 | PDOC.FM ---
- Subjective Subjective: No acute events overnight. Patient states he was able to get some sleep. A/O x1. Denies any Cp, SOB, n/v, or urinary sxs. Does endorses diffuse muscle aches. Denies fever/chills. - Objective MAR Reviewed: Yes Vital Signs & Weight: Vital Signs (12 hours) Temp Pulse Resp BP Pulse Ox 12/11/20 04:31 98.9 F 90 20 144/64 H 95 12/10/20 19:25 98.8 F 83 18 140/64 96 Weight Weight 70.307 kg I&O: 12/10/20 12/11/20 12/12/20 06:59 06:59 06:59 Output Total 350 Balance -350 Result Diagrams: 12/11/20 03:57 12/11/20 03:57 EKG Reviewed by me: Yes (Tele: No acute events) Phys Exam - Physical Examination Constitutional: NAD (pleasantly demented, A/O x1, good spirits and comfortable) HEENT: moist MMs Neck: supple Respiratory: no wheezing, no rales, no rhonchi, clear to auscultation bilateral Cardiovascular: RRR, no significant murmur Gastrointestinal: soft, non-tender, no distention, positive bowel sounds Musculoskeletal: no edema Neurological: moves all 4 limbs Deviation from normal: A/O x1 to person only Dx/Plan (1) Metabolic encephalopathy Code(s): G93.41 - METABOLIC ENCEPHALOPATHY Status: Acute (2) Rhabdomyolysis Code(s): M62.82 - RHABDOMYOLYSIS Status: Acute (3) Subdural hemorrhage Code(s): I62.00 - NONTRAUMATIC SUBDURAL HEMORRHAGE, UNSPECIFIED Status: Chronic (4) UTI (urinary tract infection) Status: Acute Qualifiers: Urinary tract infection type: acute cystitis - Plan Plan: 85 y/o Male with h/o dementia, recent subdural hemorrhage s/p fall, [place] resident admitted for acute metabolic encephalopathy 2/2 UTI And rhabdomyolysis from being foudn on ground after a fall. # Acute Metabolic encephalopathy - A/O x1 but pleasant and talkative this AM. Will clarify with [place] patients baseline mentation - likely 2/2 UTI and rhabdo - will continue IVF hydration and IV rocephin for UTI - head ct no acute findings, stable subarachnoid bleed. grossly normal neuro exam. #Complicated UTI - hx of acute cystitis with urine ccx enterobacter and e coli sensitive to Rocephin in 09/2020. - will continue rocephin at this time and adjust antibiotics if indicated once susceptibility result. - Hx of BPH with lower urinary tract symptoms. - UCx pending #Rhabdomyolysis - CK 1415 -> 2624 - LR @ 160cc/hr - no CHRISTIAN with cr 0.77 - slight bump in AST from 37 -> 76, likely from rhabdo #Indeterminantly elevated troponins - 2/2 rhabdo - EKG rate 70, SR with 1st degree block, No ST segment changes. No acute events on tele. - trop 0.2 - 0.16 - 0.16 #Hypothyroidism - TSH 5.1, will clarify NH dose of levo as patient on 175mcg and still not at goal per current records #Hx of traumatic subarachnoid hemorrhage without loss of consciousness - stable on CT on admission, no further acute bleeding #Hx of BPH - continue home meds #Hx of GERD - continue home meds #Hx of dementia - A/O x1, pleasant PCP: [facility] [place] - [facility] Code: Full Fluids: LR @ 160cc/hr Diet: HH DVT ppx: SCDs given recent bleed Dispo: Admitted to tele inpatient for UTI, rhabdo and elevated trop. Continue abx pending culture. Continue IVF. Anticipate LOS >48hrs. Addendum - Attending - Attending Attestation Date/Time: 12/11/20 2807 I personally evaluated the patient and discussed the management with Dr. Blount I agree with the History, Examination, Assessment and Plan documented above with any addition or exceptions noted below - Patient denies any complaints. Afebrile VSS. A/P: 1) Weakness and recurrent falls - continue IVF; PT eval. 2) Possible UTI- urine culture pending; continue rocephin. 3) Dementia- stable 4) Rhabdomyolysis - continue IVF; monitor CK
[2020-12-11] MEDS ORDERED: FLU VACC QS2020-21(65YR UP)/PF 240 MCG/0.7 ML SYRINGE IM ONE (09:00)
--- NOTE | 2020-12-11 09:49 | PQF ---
CLINICAL DOCUMENTATION CLARIFICATION FORM: Dear Dr. Blount Date: 12/11/20 Please exercise your independent, professional judgment in responding to the clarification form. Clinical indicators are provided on the bottom of this form for your review. Please check appropriate box(es) to clarify if the following diagnosis has been ruled in our ruled out: SEPSIS [ ] Ruled in diagnosis [ ] Continue to treat [ ] Resolved [ x] Ruled out diagnosis [ ] Improving [ ] Cannot rule out diagnosis [ ] Other diagnosis [ ] Unable to determine In addition, please specify: Present on Admission (POA): [ ] Yes [ x ] No [ ] Unable to determine For continuity of documentation, please document condition throughout progress notes and discharge summary. Thank You. To be completed by CDI/Coding staff for physician review: CLINICAL INDICATORS - SIGNS / SYMPTOMS / LABS / RESULTS AND LOCATION IN MR ER NOTE: "SEPSIS" WBC 12/10: 20.0 RISK FACTORS / RESULTS AND LOCATION IN MR UTI (ER NOTE, H&P) "MENTAL STATUS CHANGES" (ER NOTE) TREATMENTS / RESULTS AND LOCATION IN MR IV ROCEPHIN (ER-PRESENT) IV FLUIDS (ER-PRESENT) CDS Signature: Lata White RN Phone #: [phone] Date: 12/11/20 This is a permanent part of the Medical Record [facility]
[2020-12-11] MEDS: Lactated Ringer's 1,000 ML IV SCH ×2 (09:56→12:03)
[2020-12-11] MEDS: Polyethylene Glycol 3350 17 GM Packet PO SCH (10:04)
[2020-12-11] MEDS ORDERED: cefTRIAXone\\ROCEPHIN 1 GM in Sodium Chloride 0.9% 100 ML IVPB SCH (13:00)
[2020-12-11] MEDS: Atorvastatin Calcium 10 MG TAB PO SCH (19:42)
[2020-12-11] MEDS: Tamsulosin HCl 0.4 MG CAP PO SCH (19:42)
[2020-12-11] MEDS: Cefepime 2 GM in Sodium Chloride 0.9% 100 ML IVPB SCH (21:24)
[2020-12-12] MEDS: Lactated Ringer's 1,000 ML IV SCH ×6 (01:27→22:57)
[2020-12-12 04:45] LABS: #Basophils 0.1 thou/uL (0.0-0.2); #Eosinphils 0.1 thou/uL (0.0-0.7); #Lymphocytes 1.3 thou/uL (1.20-3.40); #Monocytes 0.7 thou/uL (0.11-0.59); #Neutrophils 8.5 thou/uL (1.40-6.50); %Basophils 0.5 % (0.0-1.0); %Eosinophils 0.9 % (0.0-10.0); %Lymphocytes 12.2 % (21.0-51.0); %Monocytes 6.5 % (0.0-10.0); %Neutrophils 79.9 % (42.0-75.0); Mean Corpuscular HGB CONC 34.6 g/dL (32.0-36.0); Mean Corpuscular Hemoglobin 34.6 pg (27.0-31.0); Platelet Count 283 thou/uL (130-400); RBC Distribution Width 11.9 % (11.5-14.5); White Blood Cell (WBC) Count 10.6 thou/uL (4.8-10.8)
[2020-12-12 05:07] LABS: ALT (SGPT) 36 U/L (8-55); AST (SGOT) 135 U/L (5-34); Albumin 2.8 g/dL (3.4-4.8); Alkaline Phosphatase 75 U/L (40-110); Anion Gap 14 mmol/L (10-20); BUN (Urea Nitrogen) 14 mg/dL (8.4-25.7); Bilirubin, Total 0.7 mg/dL (0.2-1.2); CK (CPK) 3573 U/L (30-200); Calc. Creatinine Clearance 75 mL/min (70-130); Calcium 8.2 mg/dL (7.8-10.44); Carbon Dioxide 25 mmol/L (23-31); Chloride 98 mmol/L (98-107); Globulin 2.7 g/dL (2.4-3.5); Glucose 81 mg/dL (83-110); Potassium 3.7 mmol/L (3.5-5.1); Protein, Total 5.5 g/dL (5.8-8.1); Sodium 133 mmol/L (136-145)
[2020-12-12] MEDS: Levothyroxine 175 MCG TAB PO SCH (05:36)
[2020-12-12] MEDS: Cefepime 2 GM in Sodium Chloride 0.9% 100 ML IVPB SCH ×3 (05:36→22:58)
--- NOTE | 2020-12-12 06:02 | PDOC.FM ---
- Subjective Subjective: Per nursing, patient was restless overnight. He was up and out of bed multiple times. The patient was AAOx1 this morning, but very pleasant. He reports that he has pain from his head to his toes, but was not able to specifically located any of the pain. He was resting comfortably in bed. - Objective MAR Reviewed: Yes Vital Signs & Weight: Vital Signs (12 hours) Temp Pulse Resp BP Pulse Ox 12/12/20 04:00 98.6 F 78 16 150/68 H 98 12/11/20 19:38 98.5 F 77 20 166/78 H 95 Weight Weight 70.307 kg I&O: 12/10/20 12/11/20 12/12/20 06:59 06:59 06:59 Output Total 350 Balance -350 Result Diagrams: 12/12/20 04:08 12/12/20 04:08 Phys Exam - Physical Examination Constitutional: NAD HEENT: moist MMs Neck: supple Respiratory: no wheezing, no rales, no rhonchi Cardiovascular: RRR Gastrointestinal: soft, non-tender Musculoskeletal: no edema Neurological: moves all 4 limbs Deviation from normal: AAOx1 Skin: no rash Dx/Plan - Plan Plan: # Acute Metabolic encephalopathy - A/O x1 but pleasant and talkative this AM. Baseline unknown, will try to clarify with NH - likely 2/2 UTI and rhabdo - will continue IVF hydration and IV rocephin for UTI - head ct no acute findings, stable subarachnoid bleed. grossly normal neuro exam. #Complicated UTI, pseudomonas - hx of acute cystitis with urine ccx enterobacter and e coli sensitive to Rocephin in 09/2020. - urine cx: psuedomonas - will continue rocephin at this time, awaiting sensitivities - Hx of BPH with lower urinary tract symptoms. #Rhabdomyolysis - CK 1415 > 2624 > 3573 - LR @ 160cc/hr > will increase to 200 mls/hr - no CHRISTIAN with cr 0.72 - bump in AST from 37 > 76 > 135, likely from rhabdo #Indeterminantly elevated troponins - 2/2 rhabdo - EKG rate 70, SR with 1st degree block, No ST segment changes. No acute events on tele. - trop 0.2 - 0.16 - 0.16 #HTN - no known history or home meds - will add low dose amlodipine #Hypothyroidism - TSH 5.1, will clarify NH dose of levo as patient on 175mcg and still not at goal per current records #Hx of traumatic subarachnoid hemorrhage without loss of consciousness - stable on CT on admission, no further acute bleeding #Hx of BPH - continue home meds #Hx of GERD - continue home meds #Hx of dementia - A/O x1, pleasant - CM consulted for placement as patient currently lives in independent living dispo: pending further medical management and placement Addendum - Attending - Attending Attestation Date/Time: 12/12/20 1043 I personally evaluated the patient and discussed the management with Dr. Parrish and Michael. I agree with the History, Examination, Assessment and Plan documented above with any addition or exceptions noted below. Increase fluids but monitor volume status closely.
[2020-12-12] MEDS: Polyethylene Glycol 3350 17 GM Packet PO SCH (07:34)
[2020-12-12] MEDS ORDERED: Amlodipine 5 MG TAB PO SCH (09:15)
[2020-12-12] MEDS ORDERED: hydrALAZINE 20 MG/ML VIAL SLOW IVP PRN (12:08)
[2020-12-12] MEDS: Tamsulosin HCl 0.4 MG CAP PO SCH (22:57)
[2020-12-12] MEDS: Atorvastatin Calcium 10 MG TAB PO SCH (22:57)
[2020-12-13] MEDS ORDERED: Lorazepam 2 MG/ML VIAL SLOW IVP SCH (01:00)
[2020-12-13] MEDS: Lactated Ringer's 1,000 ML IV SCH ×4 (01:06→21:23)
[2020-12-13 04:52] LABS: #Lymphocytes 1.2 thou/uL (1.20-3.40); #Monocytes 0.7 thou/uL (0.11-0.59); #Neutrophils 11.3 thou/uL (1.40-6.50); %Basophils 0.4 % (0.0-1.0); %Eosinophils 0.2 % (0.0-10.0); %Monocytes 5.2 % (0.0-10.0); %Neutrophils 85.2 % (42.0-75.0); Hemoglobin 10.1 g/dL (14.0-18.0); Mean Corpuscular HGB CONC 35.3 g/dL (32.0-36.0); Mean Corpuscular Hemoglobin 35.1 pg (27.0-31.0); Mean Corpuscular Volume 99.3 fL (78.0-98.0); Mean Platelet Volume 6.9 fL (7.4-10.4); Platelet Count 317 thou/uL (130-400); RBC Distribution Width 12.1 % (11.5-14.5); Red Blood Cell (RBC) Count 2.87 mill/uL (4.70-6.10); White Blood Cell (WBC) Count 13.3 thou/uL (4.8-10.8)
[2020-12-13 05:16] LABS: ALT (SGPT) 49 U/L (8-55); AST (SGOT) 148 U/L (5-34); Alkaline Phosphatase 78 U/L (40-110); Anion Gap 14 mmol/L (10-20); BUN (Urea Nitrogen) 11 mg/dL (8.4-25.7); Bilirubin, Total 0.8 mg/dL (0.2-1.2); CK (CPK) 3295 U/L (30-200); Calc. Creatinine Clearance 88 mL/min (70-130); Calcium 8.2 mg/dL (7.8-10.44); Carbon Dioxide 23 mmol/L (23-31); Chloride 97 mmol/L (98-107); Globulin 2.5 g/dL (2.4-3.5); Glucose 103 mg/dL (83-110); Potassium 3.9 mmol/L (3.5-5.1); Protein, Total 5.5 g/dL (5.8-8.1); Sodium 130 mmol/L (136-145)
[2020-12-13] MEDS: Cefepime 2 GM in Sodium Chloride 0.9% 100 ML IVPB SCH (05:49)
[2020-12-13] MEDS: Levothyroxine 175 MCG TAB PO SCH (05:50)
--- NOTE | 2020-12-13 06:23 | PDOC.FM ---
- Subjective Subjective: Patient was restless overnight and .5 mg of Ativan was given. Patient's son came to visit yesterday. Per nursing, patient was able to recognize his son, but his mentation did not change and he continued to be AAOx1. Son reported history of asthma in the past, but no daily medication use. On exam this morning, patient remained AAOx1. He was very pleasant and cooperative with exam. NC was in place with 1 L O2. No respiratory distress. Son will be visiting later today. - Objective MAR Reviewed: Yes Vital Signs & Weight: Vital Signs (12 hours) Temp Pulse Resp BP Pulse Ox 12/13/20 05:49 97.6 F 86 24 H 166/86 H 94 L 12/13/20 02:30 96 12/12/20 23:22 83 24 H 181/89 H 12/12/20 22:48 98.2 F 83 18 202/90 H 96 12/12/20 19:20 97.7 F 80 28 H 174/81 H 94 L Weight Weight 69.428 kg I&O: 12/11/20 12/12/20 12/13/20 06:59 06:59 06:59 Intake Total 100 4648 Output Total 350 250 700 Balance -350 -150 3948 Result Diagrams: 12/13/20 04:16 12/13/20 04:16 EKG Reviewed by me: Yes (SANJANA) Phys Exam - Physical Examination Constitutional: NAD HEENT: moist MMs Neck: supple expiratory wheezing Cardiovascular: RRR Gastrointestinal: soft, non-tender Musculoskeletal: no edema Neurological: non-focal, normal sensation Deviation from normal: AAOx1 Skin: no rash Dx/Plan - Plan Plan: # Acute Metabolic encephalopathy - A/O x1 but pleasant and talkative this AM. Baseline unknown, will try to clarify with NH - likely 2/2 UTI and rhabdo - will continue IVF hydration, Patient was switched from IV Rocephin to IV Cefepime on 12/11, cultures grew pseudomonas which is rueda sensitive, will likely switch to omnicef today - head ct no acute findings, stable subarachnoid bleed. grossly normal neuro exam. #Complicated UTI, pseudomonas - hx of acute cystitis with urine ccx enterobacter and e coli sensitive to Rocephin in 09/2020. - urine cx: psuedomonas, rueda sensitive - Switched from Rocephin to Cefepime on 12/11, will likely switch to omnicef today - Hx of BPH with lower urinary tract symptoms. #Rhabdomyolysis - CK 1415 > 2624 > 3573 > 3861 > 3295 - will decreased fluids to 150 mls/hr, per nursing poor PO intake - no CHRISTIAN with cr 0.63 - bump in AST from 37 > 76 > 135 > 148, likely from rhabdo #Indeterminantly elevated troponins - 2/2 rhabdo - EKG rate 70, SR with 1st degree block, No ST segment changes. No acute events on tele. 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 - stable on CT on admission, no further acute bleeding #Hx of BPH - continue home meds #Hx of GERD - continue home meds #Hx of dementia - A/O x1, pleasant - CM consulted for placement as patient currently lives in independent living - will discuss starting medication today with family as patient has been agitated over night #Hx of Asthma - per family reports, history of asthma but no daily medication - due to wheezing on exam, will add albuterol inhaler prn dispo: pending further medical management and placement Addendum - Attending - Attending Attestation Date/Time: 12/13/20 1051 I personally evaluated the patient and discussed the management with Dr. Parrish. I agree with the History, Examination, Assessment and Plan documented above with any addition or exceptions noted below. Will further discuss PO and await placement.
[2020-12-13] MEDS ORDERED: Albuterol Sulfate 2.5 mg/3 ml Neb IPPB PRN (06:45)
[2020-12-13] MEDS: Amlodipine 5 MG TAB PO SCH (08:47)
[2020-12-13] MEDS: Polyethylene Glycol 3350 17 GM Packet PO SCH (08:48)
[2020-12-13] MEDS ORDERED: Amlodipine 5 MG TAB PO SCH (09:00)
[2020-12-13] MEDS: Tamsulosin HCl 0.4 MG CAP PO SCH (21:17)
[2020-12-13] MEDS: Atorvastatin Calcium 10 MG TAB PO SCH (21:17)
[2020-12-13] MEDS: Ciprofloxacin 500 MG TAB PO SCH (21:17)
[2020-12-14] MEDS: Lactated Ringer's 1,000 ML IV SCH ×2 (04:18→08:19)
[2020-12-14 04:49] LABS: #Eosinphils 0.3 thou/uL (0.0-0.7); #Lymphocytes 1.8 thou/uL (1.20-3.40); #Monocytes 0.8 thou/uL (0.11-0.59); #Neutrophils 6.7 thou/uL (1.40-6.50); %Basophils 0.5 % (0.0-1.0); %Eosinophils 3.1 % (0.0-10.0); %Monocytes 7.8 % (0.0-10.0); %Neutrophils 69.6 % (42.0-75.0); Hemoglobin 9.7 g/dL (14.0-18.0); Mean Corpuscular HGB CONC 34.6 g/dL (32.0-36.0); Mean Corpuscular Hemoglobin 34.4 pg (27.0-31.0); Mean Corpuscular Volume 99.7 fL (78.0-98.0); Mean Platelet Volume 6.9 fL (7.4-10.4); Platelet Count 321 thou/uL (130-400); RBC Distribution Width 12.1 % (11.5-14.5); Red Blood Cell (RBC) Count 2.83 mill/uL (4.70-6.10); White Blood Cell (WBC) Count 9.6 thou/uL (4.8-10.8)
--- NOTE | 2020-12-14 05:34 | PDOC.FM ---
- Subjective Subjective: Patient was very pleasant this morning. He is AAO to person and time this morning. Per morning sitter, he had a sitter overnight which seemed to help his restlessness. Denies CP, DOYLE, Abdominal pain. Spoke with patient's son who reports rapid decline in mentation over last 2-3 weeks. - Objective MAR Reviewed: Yes Vital Signs & Weight: Vital Signs (12 hours) Temp Pulse Resp BP Pulse Ox 12/14/20 03:38 98.4 F 75 22 H 153/68 H 97 12/14/20 02:00 97 12/14/20 00:00 99 F 80 14 167/76 H 100 12/13/20 20:00 98.2 F 80 22 H 144/65 H 94 L Weight Weight 69.428 kg I&O: 12/12/20 12/13/20 12/14/20 06:59 06:59 06:59 Intake Total 100 4648 5 Output Total 250 700 Balance -150 3948 5 Result Diagrams: 12/14/20 04:25 12/14/20 04:24 EKG Reviewed by me: Yes (SR) Phys Exam - Physical Examination Constitutional: NAD Neck: supple Respiratory: wheezing present expiratory wheezing at the bases Cardiovascular: RRR Gastrointestinal: soft, non-tender, positive bowel sounds Musculoskeletal: no edema Deviation from normal: AAOx2 Skin: no rash Dx/Plan - Plan Plan: #Acute Metabolic encephalopathy - A/O x2. Talked with patient's son this morning, interested in placement, CM consulted - likely 2/2 UTI and rhabdo - will continue IVF hydration, Patient was switched from IV Rocephin to IV Cefepime on 12/11, cultures grew pseudomonas which is rueda sensitive, PO ciprofloxacin started on 12/13, will continue to treat x7 days - head ct no acute findings, stable subarachnoid bleed. grossly normal neuro exam. #Complicated UTI, pseudomonas - hx of acute cystitis with urine ccx enterobacter and e coli sensitive to Rocephin in 09/2020. - urine cx: psuedomonas, rueda sensitive - Switched from Rocephin to Cefepime on 12/11, switched to PO ciprofloxacin on 12/13 x7 days - Hx of BPH with lower urinary tract symptoms. #Rhabdomyolysis, improving - CK 1415 > 2624 > 3573 > 3861 > 3295 > 1427 - will continue to decrease fluids as appropriate, continue to encourage PO intake - no CHRISTIAN with cr 0.70 - bump in AST from 37 > 76 > 135 > 148 > 97, likely from rhabdo #Indeterminantly elevated troponins - 2/2 rhabdo - EKG rate 70, SR with 1st degree block, No ST segment changes. No acute events on tele. 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 - stable on CT on admission, no further acute bleeding #Hx of BPH - continue home meds #Hx of GERD - continue home meds #Hx of dementia - A/O x1, pleasant - CM consulted for placement as patient currently lives in independent living - will discuss starting medication today with family as patient has been agitated over night #Hx of Asthma - per family reports, history of asthma but no daily medication - due to wheezing on exam, will add albuterol inhaler prn dispo: pending further medical management and placement Addendum - Attending - Attending Attestation Date/Time: 12/14/20 1121 I personally evaluated the patient and discussed the management with Dr. Parrish. I agree with the History, Examination, Assessment and Plan documented above with any addition or exceptions noted below. CM consult for placement. Increased O2 requirement so CXR and BNP to evaluate for fluid overload. Wheezing on exam so add albuterol.
[2020-12-14 05:39] LABS: ALT (SGPT) 39 U/L (8-55); AST (SGOT) 97 U/L (5-34); Albumin 2.6 g/dL (3.4-4.8); Alkaline Phosphatase 63 U/L (40-110); Anion Gap 12 mmol/L (10-20); BUN (Urea Nitrogen) 9 mg/dL (8.4-25.7); Bilirubin, Total 0.6 mg/dL (0.2-1.2); Calc. Creatinine Clearance 76 mL/min (70-130); Calcium 7.8 mg/dL (7.8-10.44); Carbon Dioxide 25 mmol/L (23-31); Chloride 98 mmol/L (98-107); Globulin 2.4 g/dL (2.4-3.5); Glucose 90 mg/dL (83-110); Potassium 3.7 mmol/L (3.5-5.1); Sodium 131 mmol/L (136-145)
[2020-12-14] MEDS: Levothyroxine 175 MCG TAB PO SCH (05:48)
[2020-12-14 06:49] LABS: CK (CPK) 1427 U/L (30-200)
[2020-12-14] MEDS: Amlodipine 5 MG TAB PO SCH (08:17)
[2020-12-14] MEDS: Ciprofloxacin 500 MG TAB PO SCH ×2 (08:18→20:26)
[2020-12-14] MEDS: Polyethylene Glycol 3350 17 GM Packet PO SCH (08:18)
[2020-12-14] MEDS ORDERED: Lactated Ringer's 1,000 ML IV SCH (08:27)
--- NOTE | 2020-12-14 09:52 | RAD ---
Exam: Chest one view HISTORY:Shortness of breath Comparison: 12/10/2020 FINDINGS: Cardiac silhouette:Cardiomegaly. Aorta: Atherosclerosis Pulmonary vessels: Normal Costophrenic angles: Bibasilar pleural effusions LUNGS: Scattered interstitial and alveolar opacities, predominantly the lung bases. Pneumothorax: None Osseous abnormalities: None IMPRESSION: Congestive heart failure. Atherosclerosis.
[2020-12-14] MEDS ORDERED: Furosemide 20 MG/2 ML VIAL SLOW IVP SCH (11:30)
[2020-12-14] MEDS: Atorvastatin Calcium 10 MG TAB PO SCH (20:26)
[2020-12-14] MEDS: Tamsulosin HCl 0.4 MG CAP PO SCH (20:26)
[2020-12-15 04:52] LABS: #Basophils 0.1 thou/uL (0.0-0.2); #Eosinphils 0.2 thou/uL (0.0-0.7); #Lymphocytes 2.2 thou/uL (1.20-3.40); #Neutrophils 6.6 thou/uL (1.40-6.50); %Basophils 1.4 % (0.0-1.0); %Eosinophils 2.2 % (0.0-10.0); %Lymphocytes 21.4 % (21.0-51.0); %Monocytes 10.2 % (0.0-10.0); %Neutrophils 64.7 % (42.0-75.0); Mean Corpuscular HGB CONC 33.5 g/dL (32.0-36.0); Mean Corpuscular Hemoglobin 33.4 pg (27.0-31.0); Mean Corpuscular Volume 99.9 fL (78.0-98.0); Mean Platelet Volume 7.1 fL (7.4-10.4); Platelet Count 389 thou/uL (130-400); RBC Distribution Width 12.3 % (11.5-14.5); White Blood Cell (WBC) Count 10.2 thou/uL (4.8-10.8)
[2020-12-15 04:55] LABS: ALT (SGPT) 40 U/L (8-55); AST (SGOT) 82 U/L (5-34); Albumin 2.8 g/dL (3.4-4.8); Alkaline Phosphatase 74 U/L (40-110); Anion Gap 10 mmol/L (10-20); BUN (Urea Nitrogen) 8 mg/dL (8.4-25.7); Bilirubin, Total 0.6 mg/dL (0.2-1.2); CK (CPK) 1089 U/L (30-200); Calc. Creatinine Clearance 79 mL/min (70-130); Calcium 8.2 mg/dL (7.8-10.44); Carbon Dioxide 33 mmol/L (23-31); Chloride 96 mmol/L (98-107); Globulin 2.5 g/dL (2.4-3.5); Glucose 102 mg/dL (83-110); Potassium 3.4 mmol/L (3.5-5.1); Protein, Total 5.3 g/dL (5.8-8.1); Sodium 136 mmol/L (136-145)
[2020-12-15] MEDS ORDERED: Potassium Chloride 20 MEQ TAB PO SCH (06:15)
--- NOTE | 2020-12-15 06:21 | PDOC.FM ---
- Subjective Subjective: AAOx2. Pleasant. Better PO intake per nursing. On RA. Denies SOB, CP, abdominal pain. Reported pain on the top of his foot. - Objective MAR Reviewed: Yes Vital Signs & Weight: Vital Signs (12 hours) Temp Pulse Resp BP Pulse Ox 12/15/20 04:00 98.4 F 75 18 146/69 H 95 12/14/20 20:28 97 12/14/20 19:42 98.8 F 92 18 139/63 97 Weight Weight 70.335 kg I&O: 12/13/20 12/14/20 12/15/20 06:59 06:59 06:59 Intake Total 4648 3875 850 Output Total 030 821 7892 Balance 3947 1882 -3311 Result Diagrams: 12/15/20 03:57 12/15/20 03:57 EKG Reviewed by me: Yes (SR) Phys Exam - Physical Examination Constitutional: NAD Neck: supple Respiratory: no wheezing, no rales, no rhonchi, clear to auscultation bilateral Cardiovascular: RRR Gastrointestinal: soft, non-tender, positive bowel sounds Musculoskeletal: no edema tender to palpation over dorsum of left foot, no edema, erythema, lesions Deviation from normal: AAOx2 Skin: no rash Dx/Plan - Plan Plan: #Acute Metabolic encephalopathy - A/O x2. CM working on placement - likely 2/2 UTI and rhabdo - s/p fluid and on IV antibiotics as below - head ct no acute findings, stable subarachnoid bleed. grossly normal neuro exam. #Complicated UTI, pseudomonas - urine cx: psuedomonas, rueda sensitive - Switched from Rocephin to Cefepime on 12/11, switched to PO ciprofloxacin on 12/13 x7 days #Rhabdomyolysis, improving - CK 1415 > 2624 > 3573 > 3861 > 3295 > 1427 > 1089; consider repeat later with goal <1000 for DC - DC'd fluids yesterday due to concern for fluid overload, patient was also given 20 mg of IV lasix with appropriate response, on RA - encourage PO intake - bump in AST from 37 > 76 > 135 > 148 > 97 > 82, likely from rhabdo #Fluid Overload - new O2 requirement with Xray concerning for CHF on 12/14 - fluid stopped yesterday, responded to lasix - no longer has O2 requirement #Indeterminantly elevated troponins - 2/2 rhabdo - EKG rate 70, SR with 1st degree block, No ST segment changes. No acute events on tele. 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 Parrish. I agree with the History, Examination, Assessment and Plan documented above with any addition or exceptions noted below. Off oxygen following diuresis. Ready for d/c once placement available. will continue to trend CPK in hospital. Would recommend trending until < 1000.
[2020-12-15] MEDS: Levothyroxine 175 MCG TAB PO SCH (07:45)
[2020-12-15] MEDS: Amlodipine 5 MG TAB PO SCH (08:12)
[2020-12-15] MEDS: Ciprofloxacin 500 MG TAB PO SCH ×2 (08:12→20:57)
[2020-12-15] MEDS: Polyethylene Glycol 3350 17 GM Packet PO SCH (08:12)
[2020-12-15] MEDS: Tamsulosin HCl 0.4 MG CAP PO SCH (20:57)
[2020-12-15] MEDS: Atorvastatin Calcium 10 MG TAB PO SCH (20:57)
[2020-12-16 04:25] LABS: #Basophils 0.1 thou/uL (0.0-0.2); #Eosinphils 0.1 thou/uL (0.0-0.7); #Lymphocytes 2.1 thou/uL (1.20-3.40); #Monocytes 1.1 thou/uL (0.11-0.59); #Neutrophils 8.7 thou/uL (1.40-6.50); %Basophils 0.6 % (0.0-1.0); %Eosinophils 1.2 % (0.0-10.0); %Lymphocytes 17.2 % (21.0-51.0); %Monocytes 8.8 % (0.0-10.0); %Neutrophils 72.3 % (42.0-75.0); Hemoglobin 11.3 g/dL (14.0-18.0); Mean Corpuscular HGB CONC 36.1 g/dL (32.0-36.0); Mean Platelet Volume 7.1 fL (7.4-10.4); Platelet Count 418 thou/uL (130-400); RBC Distribution Width 12.8 % (11.5-14.5); Red Blood Cell (RBC) Count 3.04 mill/uL (4.70-6.10); White Blood Cell (WBC) Count 12.1 thou/uL (4.8-10.8)
[2020-12-16 04:45] LABS: ALT (SGPT) 42 U/L (8-55); AST (SGOT) 89 U/L (5-34); Albumin 2.8 g/dL (3.4-4.8); Alkaline Phosphatase 74 U/L (40-110); Anion Gap 14 mmol/L (10-20); BUN (Urea Nitrogen) 8 mg/dL (8.4-25.7); Bilirubin, Total 0.8 mg/dL (0.2-1.2); CK (CPK) 1096 U/L (30-200); Calc. Creatinine Clearance 87 mL/min (70-130); Calcium 8.2 mg/dL (7.8-10.44); Carbon Dioxide 27 mmol/L (23-31); Chloride 96 mmol/L (98-107); Globulin 2.8 g/dL (2.4-3.5); Glucose 109 mg/dL (83-110); Potassium 3.9 mmol/L (3.5-5.1); Protein, Total 5.6 g/dL (5.8-8.1); Sodium 133 mmol/L (136-145)
--- NOTE | 2020-12-16 05:35 | PDOC.FM ---
- Subjective Subjective: AAOx2. Insurance wants to deny patient for inpatient rehab, but is willing to do peer to peer. Family would like peer to peer to be attempted before exploring SNF options. No acute events overnight. Denies pain. - Objective MAR Reviewed: Yes Vital Signs & Weight: Vital Signs (12 hours) Temp Pulse Resp BP Pulse Ox 12/16/20 03:42 98.6 F 91 17 158/71 H 95 12/16/20 00:31 94 L 12/15/20 20:20 99.1 F 100 20 148/65 H 93 L Weight Weight 71.35 kg I&O: 12/14/20 12/15/20 12/16/20 06:59 06:59 06:59 Intake Total 3875 850 480 Output Total 200 5860 500 Balance 3675 -5010 -20 Result Diagrams: 12/16/20 04:00 12/16/20 04:00 EKG Reviewed by me: Yes (SR 60-90) Phys Exam - Physical Examination Constitutional: NAD HEENT: moist MMs Neck: supple Respiratory: no wheezing, no rales, clear to auscultation bilateral Cardiovascular: RRR Gastrointestinal: soft, non-tender, positive bowel sounds Musculoskeletal: no edema Neurological: moves all 4 limbs Deviation from normal: AAOx2 Skin: no rash Dx/Plan - Plan Plan: #Acute Metabolic encephalopathy - A/O x2. CM working on placement, peer to peer scheduled for today - likely 2/2 UTI and rhabdo - s/p fluid and on IV antibiotics as below - head ct no acute findings, stable subarachnoid bleed. grossly normal neuro exam. #Complicated UTI, pseudomonas - urine cx: psuedomonas, rueda sensitive - Switched from Rocephin to Cefepime on 12/11, switched to PO ciprofloxacin on 12/13 x7 days #Rhabdomyolysis, improving - CK 1415 > 2624 > 3573 > 3861 > 3295 > 1427 > 1089 ? 1096; consider repeat later with goal <1000 for DC - DC'd fluids due to concern for fluid overload, s/p 20 mg of IV lasix with appropriate response, on RA; due to bump in CK, will bolus 500 ml - encourage PO intake - bump in AST from 37 > 76 > 135 > 148 > 97 > 82, likely from rhabdo #Fluid Overload - new O2 requirement with Xray concerning for CHF on 12/14 - fluid stopped yesterday, responded to lasix with >5L output - no longer has O2 requirement #Indeterminantly elevated troponins - 2/2 rhabdo - EKG rate 70, SR with 1st degree block, No ST segment changes. No acute events on tele. 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 Parrish. I agree with the History, Examination, Assessment and Plan documented above with any addition or exceptions noted below. Small fluid bolus since CKP uptrending. placement pending. Can continue to trend CKP outpatient. will need 7 total days of abx. Currently day 6.
[2020-12-16] MEDS: Levothyroxine 175 MCG TAB PO SCH (06:19)
[2020-12-16] MEDS: Amlodipine 5 MG TAB PO SCH (09:11)
[2020-12-16] MEDS: Ciprofloxacin 500 MG TAB PO SCH ×2 (09:12→20:46)
[2020-12-16] MEDS: Polyethylene Glycol 3350 17 GM Packet PO SCH (09:12)
[2020-12-16] MEDS ORDERED: Lactated Ringer's 500 ML IV SCH (09:30)
[2020-12-16] MEDS: Atorvastatin Calcium 10 MG TAB PO SCH (20:46)
[2020-12-16] MEDS: Tamsulosin HCl 0.4 MG CAP PO SCH (20:46)
[2020-12-16] MEDS: Melatonin 3 MG TAB PO PRN (20:50)
[2020-12-17 04:37] LABS: #Basophils 0.1 thou/uL (0.0-0.2); #Eosinphils 0.2 thou/uL (0.0-0.7); #Lymphocytes 2.1 thou/uL (1.20-3.40); #Neutrophils 7.8 thou/uL (1.40-6.50); %Basophils 0.8 % (0.0-1.0); %Eosinophils 1.8 % (0.0-10.0); %Lymphocytes 18.7 % (21.0-51.0); %Monocytes 8.6 % (0.0-10.0); %Neutrophils 70.1 % (42.0-75.0); Hemoglobin 11.2 g/dL (14.0-18.0); Mean Corpuscular HGB CONC 36.1 g/dL (32.0-36.0); Mean Corpuscular Hemoglobin 36.3 pg (27.0-31.0); Mean Platelet Volume 6.3 fL (7.4-10.4); Platelet Count 461 thou/uL (130-400); RBC Distribution Width 12.6 % (11.5-14.5); White Blood Cell (WBC) Count 11.1 thou/uL (4.8-10.8)
[2020-12-17 05:00] LABS: ALT (SGPT) 39 U/L (8-55); AST (SGOT) 66 U/L (5-34); Albumin 2.7 g/dL (3.4-4.8); Alkaline Phosphatase 72 U/L (40-110); Anion Gap 11 mmol/L (10-20); BUN (Urea Nitrogen) 9 mg/dL (8.4-25.7); Bilirubin, Total 0.7 mg/dL (0.2-1.2); CK (CPK) 588 U/L (30-200); Calc. Creatinine Clearance 85 mL/min (70-130); Calcium 8.1 mg/dL (7.8-10.44); Carbon Dioxide 30 mmol/L (23-31); Chloride 96 mmol/L (98-107); Globulin 2.7 g/dL (2.4-3.5); Glucose 100 mg/dL (83-110); Potassium 3.9 mmol/L (3.5-5.1); Protein, Total 5.4 g/dL (5.8-8.1); Sodium 133 mmol/L (136-145)
[2020-12-17] MEDS: Levothyroxine 175 MCG TAB PO SCH (05:38)
--- NOTE | 2020-12-17 06:21 | PDOC.FM ---
- Subjective Subjective: No events overnight. Patient pleasantly AAOx2 this morning. Denies any pain. Family is currently disputing insurance denial for inpt rehab. - Objective MAR Reviewed: Yes Vital Signs & Weight: Vital Signs (12 hours) Temp Pulse Resp BP Pulse Ox 12/17/20 04:55 98.9 F 86 19 145/66 H 95 12/17/20 03:08 95 12/16/20 20:46 95 12/16/20 19:26 98.9 F 86 17 128/65 95 Weight Weight 70.942 kg I&O: 12/15/20 12/16/20 12/17/20 06:59 06:59 06:59 Intake Total 307 732 5176 Output Total 5860 660 100 Balance -5010 40 1510 Result Diagrams: 12/17/20 04:20 12/17/20 04:20 EKG Reviewed by me: Yes (60-90) Phys Exam - Physical Examination Constitutional: NAD HEENT: moist MMs Neck: supple, full ROM Respiratory: no wheezing, clear to auscultation bilateral Cardiovascular: RRR Gastrointestinal: soft, positive bowel sounds Musculoskeletal: no edema Neurological: non-focal, moves all 4 limbs Deviation from normal: AAOx2 Skin: no rash Dx/Plan - Plan Plan: #Acute Metabolic encephalopathy - A/O x2. CM working on placement, peer to peer scheduled for 11 am yesterday, never received phone call from insurance company, family if appealing decision - likely 2/2 UTI and rhabdo - s/p fluid and on IV antibiotics as below - head ct no acute findings, stable subarachnoid bleed. grossly normal neuro exam. #Complicated UTI, pseudomonas - urine cx: psuedomonas, rueda sensitive - Switched from Rocephin to Cefepime on 12/11, switched to PO ciprofloxacin on 12/13 (day 7 of 7 of antibiotics today) #Rhabdomyolysis, improving - CK 1415 > 2624 > 3573 > 3861 > 3295 > 1427 > 1089 > 1096 > 588 - DC'd fluids due to concern for fluid overload, s/p 20 mg of IV lasix with appropriate response, on RA; due to bump in CK, will bolus 500 ml - encourage PO intake - bump in AST from 37 > 76 > 135 > 148 > 97 > 82 > 89 > 66, likely from rhabdo #Fluid Overload - new O2 requirement with Xray concerning for CHF on 12/14 - fluid stopped yesterday, responded to lasix with >5L output - no longer has O2 requirement #Indeterminantly elevated troponins - 2/2 rhabdo - EKG rate 70, SR with 1st degree block, No ST segment changes. No acute events on tele. 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 Parrish I agree with the History, Examination, Assessment and Plan documented above with any addition or exceptions noted below. mild protein calorie malnutrition. Starting appetite stimulant and supplement.
[2020-12-17] MEDS: Polyethylene Glycol 3350 17 GM Packet PO SCH (09:12)
[2020-12-17] MEDS: Ciprofloxacin 500 MG TAB PO SCH ×2 (09:12→20:52)
[2020-12-17] MEDS: Amlodipine 5 MG TAB PO SCH (09:12)
[2020-12-17] MEDS: Atorvastatin Calcium 10 MG TAB PO SCH (20:52)
[2020-12-17] MEDS: Tamsulosin HCl 0.4 MG CAP PO SCH (20:52)
[2020-12-17] MEDS: Mirtazapine 15 MG Soltab PO SCH (20:52)
[2020-12-18 04:47] LABS: ALT (SGPT) 38 U/L (8-55); AST (SGOT) 54 U/L (5-34); Albumin 2.8 g/dL (3.4-4.8); Alkaline Phosphatase 72 U/L (40-110); Anion Gap 11 mmol/L (10-20); BUN (Urea Nitrogen) 10 mg/dL (8.4-25.7); Bilirubin, Total 0.9 mg/dL (0.2-1.2); CK (CPK) 444 U/L (30-200); Calc. Creatinine Clearance 76 mL/min (70-130); Calcium 8.4 mg/dL (7.8-10.44); Carbon Dioxide 28 mmol/L (23-31); Chloride 95 mmol/L (98-107); Globulin 2.9 g/dL (2.4-3.5); Glucose 106 mg/dL (83-110); Protein, Total 5.7 g/dL (5.8-8.1); Sodium 130 mmol/L (136-145)
[2020-12-18 04:51] LABS: #Basophils 0.1 thou/uL (0.0-0.2); #Eosinphils 0.2 thou/uL (0.0-0.7); #Lymphocytes 2.5 thou/uL (1.20-3.40); #Monocytes 1.2 thou/uL (0.11-0.59); #Neutrophils 8.2 thou/uL (1.40-6.50); %Basophils 0.6 % (0.0-1.0); %Eosinophils 1.3 % (0.0-10.0); %Lymphocytes 20.4 % (21.0-51.0); %Neutrophils 67.6 % (42.0-75.0); Hemoglobin 11.7 g/dL (14.0-18.0); Mean Corpuscular HGB CONC 34.4 g/dL (32.0-36.0); Mean Corpuscular Hemoglobin 34.9 pg (27.0-31.0); Mean Platelet Volume 7.2 fL (7.4-10.4); Platelet Count 417 thou/uL (130-400); RBC Distribution Width 12.1 % (11.5-14.5); Red Blood Cell (RBC) Count 3.35 mill/uL (4.70-6.10); White Blood Cell (WBC) Count 12.1 thou/uL (4.8-10.8)
[2020-12-18] MEDS: Levothyroxine 175 MCG TAB PO SCH (05:56)
--- NOTE | 2020-12-18 06:18 | PDOC.FM ---
- Subjective Subjective: No acute events overnight. Patient had poor PO intake throughout the day yesterday. Sleeping comfortably in bed this morning. AAOx2 throughout the night and easily reoriented per nursing. - Objective MAR Reviewed: Yes Vital Signs & Weight: Vital Signs (12 hours) Temp Pulse Resp BP Pulse Ox 12/18/20 04:00 96 18 144/65 H 93 L 12/18/20 00:00 88 18 142/66 H 94 L 12/17/20 20:00 96 12/17/20 19:11 99.6 F 94 18 151/67 H 96 Weight Weight 70.942 kg I&O: 12/16/20 12/17/20 12/18/20 06:59 06:59 06:59 Intake Total 700 1610 1488 Output Total 660 100 420 Balance 40 1510 1068 Result Diagrams: 12/18/20 04:05 12/18/20 04:05 Phys Exam - Physical Examination Constitutional: NAD Neck: supple Respiratory: no wheezing, clear to auscultation bilateral Cardiovascular: RRR Gastrointestinal: soft, positive bowel sounds Musculoskeletal: no edema Neurological: non-focal Skin: no rash Dx/Plan - Plan Plan: #Acute Metabolic encephalopathy - A/O x2. CM working on placement, peer to peer scheduled for 11 am yesterday, never received phone call from insurance company, family if appealing decision - likely 2/2 UTI and rhabdo - s/p fluid and on IV antibiotics as below - head ct no acute findings, stable subarachnoid bleed. grossly normal neuro exam. #Complicated UTI, pseudomonas - urine cx: psuedomonas, rueda sensitive - Switched from Rocephin to Cefepime on 12/11, switched to PO ciprofloxacin on 12/13 (day 7 of 7 of antibiotics today) #Rhabdomyolysis, improving - CK 1415 > 2624 > 3573 > 3861 > 3295 > 1427 > 1089 > 1096 > 588 > 444 - DC'd fluids due to concern for fluid overload, s/p 20 mg of IV lasix with appropriate response, on RA; due to bump in CK, will bolus 500 ml - encourage PO intake - bump in AST from 37 > 76 > 135 > 148 > 97 > 82 > 89 > 66 > 54, likely from rhabdo - will give lab break #Mild protein calorie malnutrition - started on mirtazipine, mighty shakes, and ensure high protein #Fluid Overload, resolved - new O2 requirement with Xray concerning for CHF on 12/14 - fluid stopped yesterday, responded to lasix with >5L output - no longer has O2 requirement #Indeterminantly elevated troponins - 2/2 rhabdo - EKG rate 70, SR with 1st degree block, No ST segment changes. No acute events on tele. 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 Parrish. I agree with the History, Examination, Assessment and Plan documented above with any addition or exceptions noted below. move to medical if not d/c to rehab today.
[2020-12-18] MEDS: Polyethylene Glycol 3350 17 GM Packet PO SCH (08:14)
[2020-12-18] MEDS: Ciprofloxacin 500 MG TAB PO SCH ×2 (08:14→20:20)
[2020-12-18] MEDS: Amlodipine 5 MG TAB PO SCH (08:14)
[2020-12-18] MEDS: Mirtazapine 15 MG Soltab PO SCH (20:20)
[2020-12-18] MEDS: Atorvastatin Calcium 10 MG TAB PO SCH (20:20)
[2020-12-18] MEDS: Melatonin 3 MG TAB PO PRN (20:20)
[2020-12-18] MEDS: Tamsulosin HCl 0.4 MG CAP PO SCH (20:20)
[2020-12-19 05:41] LABS: #Eosinphils 0.1 thou/uL (0.0-0.7); #Lymphocytes 2.3 thou/uL (1.20-3.40); #Neutrophils 7.4 thou/uL (1.40-6.50); %Basophils 0.3 % (0.0-1.0); %Eosinophils 0.9 % (0.0-10.0); %Lymphocytes 21.5 % (21.0-51.0); %Monocytes 9.2 % (0.0-10.0); %Neutrophils 68.2 % (42.0-75.0); Hemoglobin 11.5 g/dL (14.0-18.0); Mean Corpuscular HGB CONC 36.4 g/dL (32.0-36.0); Mean Corpuscular Hemoglobin 36.6 pg (27.0-31.0); Mean Platelet Volume 6.5 fL (7.4-10.4); Platelet Count 503 thou/uL (130-400); RBC Distribution Width 12.5 % (11.5-14.5); Red Blood Cell (RBC) Count 3.14 mill/uL (4.70-6.10); White Blood Cell (WBC) Count 10.9 thou/uL (4.8-10.8)
[2020-12-19] MEDS: Levothyroxine 175 MCG TAB PO SCH (05:53)
[2020-12-19 06:04] LABS: ALT (SGPT) 32 U/L (8-55); AST (SGOT) 38 U/L (5-34); Albumin 2.8 g/dL (3.4-4.8); Alkaline Phosphatase 70 U/L (40-110); Anion Gap 10 mmol/L (10-20); BUN (Urea Nitrogen) 12 mg/dL (8.4-25.7); Bilirubin, Total 0.7 mg/dL (0.2-1.2); CK (CPK) 211 U/L (30-200); Calc. Creatinine Clearance 76 mL/min (70-130); Calcium 8.4 mg/dL (7.8-10.44); Carbon Dioxide 29 mmol/L (23-31); Chloride 97 mmol/L (98-107); Glucose 105 mg/dL (83-110); Protein, Total 5.8 g/dL (5.8-8.1); Sodium 132 mmol/L (136-145)
--- NOTE | 2020-12-19 06:13 | PDOC.FM ---
- Subjective Subjective: Mr. Gonzalez is doing well this morning and has no complaints/concerns. - Objective Vital Signs & Weight: Vital Signs (12 hours) Temp Pulse Resp BP Pulse Ox 12/19/20 05:01 98.3 F 80 18 146/68 H 93 L 12/19/20 00:45 98.6 F 82 18 146/63 H 91 L 12/18/20 19:57 98.7 F 93 18 144/66 H 92 L 12/18/20 18:25 98.2 F 92 20 156/71 H 93 L Weight Weight 68.492 kg I&O: 12/17/20 12/18/20 12/19/20 06:59 06:59 06:59 Intake Total 1610 1488 Output Total 100 420 80 Balance 1510 1068 -80 Result Diagrams: 12/19/20 05:16 12/19/20 05:16 Phys Exam - Physical Examination Constitutional: NAD Neck: supple Respiratory: clear to auscultation bilateral Cardiovascular: RRR, no significant murmur Gastrointestinal: soft, non-tender, no distention, positive bowel sounds Musculoskeletal: no edema Neurological: non-focal Psychiatric: normal affect Skin: no rash Dx/Plan - Plan Plan: Acute Metabolic encephalopathy - A/O x2. CM working on placement - likely 2/2 UTI and rhabdo - s/p fluid and on IV antibiotics, as below - grossly normal neuro exam Complicated UTI, likely prostatitis - urine cx: psuedomonas, rueda sensitive - Switched from Rocephin to Cefepime on 12/11, switched to PO ciprofloxacin on 12/13 - Will continue Cipro for a total of 4wks given likely prostatitis. D/c 01/09/21. Rhabdomyolysis, improving - CK 1415 > > > 211 - encourage PO intake. Gentle IVF if needed given previous fluid overload - AST elevation likely 2/2 rhabdo, has improved. AST back to 38 Mild protein calorie malnutrition - started on mirtazipine, mighty shakes, and ensure high protein Fluid Overload, resolved - new O2 requirement with Xray concerning for CHF on 12/14 - euvolemic on exam - no longer has O2 requirement Indeterminate troponins - 2/2 rhabdo - EKG rate 70, SR with 1st degree block, No ST segment changes. No acute events on tele. - trop 0.2 > 0.162 > 0.168 HTN - no known history or home meds - started on amlodipine this hospitalization. 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 Continue abx for total of 4wks given likelihood of prostatitis. IVF: SL Diet: Regular GI Ppx: not indicated, home Omeprazole for GERD DVT Ppx: SCDs Code: Full PCP: Nakul Tidwellum - Attending - Attending Attestation Date/Time: 12/19/20 1514 I personally evaluated the patient and discussed the management with Dr. Monika White. I agree with the History, Examination, Assessment and Plan documented above with any addition or exceptions noted below. Patient resting comfortably. No complaints. He is continuing on Cipro for Pseudomonas UTI. Suspect chronic prostatitis as a component. Needs 1 month Cipro therapy. He is overall stable for discharge, awaiting placement approval.
[2020-12-19] MEDS: Ciprofloxacin 500 MG TAB PO SCH ×2 (08:52→21:25)
[2020-12-19] MEDS: Amlodipine 5 MG TAB PO SCH (08:52)
[2020-12-19] MEDS: Polyethylene Glycol 3350 17 GM Packet PO SCH (08:53)
[2020-12-19] MEDS ORDERED: Amlodipine 5 MG TAB PO SCH ×2 (09:41→09:45)
[2020-12-19] MEDS: Tamsulosin HCl 0.4 MG CAP PO SCH (21:25)
[2020-12-19] MEDS: Atorvastatin Calcium 10 MG TAB PO SCH (21:25)
[2020-12-19] MEDS: Melatonin 3 MG TAB PO PRN (21:26)
[2020-12-19] MEDS: Mirtazapine 15 MG Soltab PO SCH (21:26)
[2020-12-20] MEDS: Levothyroxine 175 MCG TAB PO SCH (06:40)
--- NOTE | 2020-12-20 06:51 | PDOC.FM ---
- Subjective Subjective: Mr. Gonzalez is doing well this morning and is at his baseline A&O x2. He has no complaints or concerns at this time. - Objective Vital Signs & Weight: Vital Signs (12 hours) Temp Pulse Resp BP Pulse Ox 12/20/20 05:04 98.2 F 83 20 134/69 94 L 12/20/20 00:41 98.3 F 80 18 130/69 91 L 12/19/20 20:14 98.3 F 84 18 124/65 93 L 12/19/20 20:00 93 L Weight Weight 68.492 kg I&O: 12/18/20 12/19/20 12/20/20 06:59 06:59 06:59 Intake Total 1488 200 120 Output Total 420 80 Balance 1068 120 120 Result Diagrams: 12/20/20 06:49 12/20/20 06:49 Phys Exam - Physical Examination Constitutional: NAD Neck: supple, full ROM Respiratory: clear to auscultation bilateral Cardiovascular: RRR Systolic murmur heard diffusely but worse at apex Gastrointestinal: soft, non-tender, no distention Musculoskeletal: no edema Neurological: non-focal, moves all 4 limbs Psychiatric: normal affect Skin: no rash Dx/Plan - Plan Plan: Acute Metabolic encephalopathy - A/O x2. CM working on placement - likely 2/2 UTI and rhabdo - s/p fluid and on IV antibiotics, as below - grossly normal neuro exam Complicated UTI, likely prostatitis - urine cx: psuedomonas, rueda sensitive - Switched from Rocephin to Cefepime on 12/11, switched to PO ciprofloxacin on 12/13 - Will continue Cipro for a total of 4wks given likely prostatitis. D/c 01/09/21. Rhabdomyolysis, improving - CK 1415 > > > 98 - encourage PO intake. Gentle IVF if needed given previous fluid overload - AST elevation likely 2/2 rhabdo, resolved. Monitor with am CMP Mild protein calorie malnutrition - started on mirtazipine, mighty shakes, and ensure high protein Fluid Overload, resolved - new O2 requirement with Xray concerning for CHF on 12/14 - euvolemic on exam - no longer has O2 requirement Indeterminate troponins - 2/2 rhabdo - EKG rate 70, SR with 1st degree block, No ST segment changes. No acute events on tele. 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 Continue abx for total of 4wks given likelihood of prostatitis. IVF: SL Diet: Regular GI Ppx: not indicated, home Omeprazole for GERD DVT Ppx: SCDs Code: Full PCP: Nakul Tidwellum - Attending - Attending Attestation Date/Time: 12/20/20 2194 I personally evaluated the patient and discussed the management with Dr. Monika White. I agree with the History, Examination, Assessment and Plan documented above with any addition or exceptions noted below. Patient resting comfortably and stable. Awaiting placement. Continue current medical therapy.
[2020-12-20 07:32] LABS: ALT (SGPT) 31 U/L (8-55); AST (SGOT) 33 U/L (5-34); Albumin 2.8 g/dL (3.4-4.8); Alkaline Phosphatase 69 U/L (40-110); Anion Gap 10 mmol/L (10-20); BUN (Urea Nitrogen) 16 mg/dL (8.4-25.7); Bilirubin, Total 0.6 mg/dL (0.2-1.2); CK (CPK) 98 U/L (30-200); Calc. Creatinine Clearance 64 mL/min (70-130); Calcium 8.3 mg/dL (7.8-10.44); Carbon Dioxide 28 mmol/L (23-31); Chloride 100 mmol/L (98-107); Globulin 3.1 g/dL (2.4-3.5); Glucose 103 mg/dL (83-110); Potassium 4.4 mmol/L (3.5-5.1); Protein, Total 5.9 g/dL (5.8-8.1); Sodium 134 mmol/L (136-145)
[2020-12-20] MEDS: Amlodipine 5 MG TAB PO SCH (08:01)
[2020-12-20] MEDS: Polyethylene Glycol 3350 17 GM Packet PO SCH (08:02)
[2020-12-20] MEDS: Ciprofloxacin 500 MG TAB PO SCH ×2 (08:02→21:43)
[2020-12-20 08:27] LABS: #Basophils 0.1 thou/uL (0.0-0.2); #Eosinphils 0.2 thou/uL (0.0-0.7); #Lymphocytes 2.2 thou/uL (1.20-3.40); #Neutrophils 6.8 thou/uL (1.40-6.50); %Basophils 1.1 % (0.0-1.0); %Lymphocytes 21.5 % (21.0-51.0); %Monocytes 9.3 % (0.0-10.0); %Neutrophils 66.1 % (42.0-75.0); Hemoglobin 12.3 g/dL (14.0-18.0); Mean Corpuscular HGB CONC 34.3 g/dL (32.0-36.0); Mean Corpuscular Hemoglobin 34.9 pg (27.0-31.0); Mean Platelet Volume 7.2 fL (7.4-10.4); Platelet Count 438 thou/uL (130-400); RBC Distribution Width 12.2 % (11.5-14.5); Red Blood Cell (RBC) Count 3.52 mill/uL (4.70-6.10); White Blood Cell (WBC) Count 10.3 thou/uL (4.8-10.8)
[2020-12-20] MEDS: Melatonin 3 MG TAB PO PRN (21:43)
[2020-12-20] MEDS: Tamsulosin HCl 0.4 MG CAP PO SCH (21:43)
[2020-12-20] MEDS: Atorvastatin Calcium 10 MG TAB PO SCH (21:43)
[2020-12-20] MEDS: Mirtazapine 15 MG Soltab PO SCH (21:43)
--- NOTE | 2020-12-21 06:04 | PDOC.FM ---
- Subjective Subjective: No acute events overnight. Resting comfortably in bed, stable, denies pain or concerns. - Objective MAR Reviewed: Yes Vital Signs & Weight: Vital Signs (12 hours) Temp Pulse Resp BP Pulse Ox 12/20/20 20:00 98.7 F 81 18 131/71 95 Weight Weight 68.4 kg I&O: 12/19/20 12/20/20 12/21/20 06:59 06:59 06:59 Intake Total 200 120 Output Total 80 Balance 120 120 Result Diagrams: 12/21/20 06:56 12/21/20 06:56 Phys Exam - Physical Examination Constitutional: NAD HEENT: moist MMs Neck: supple Respiratory: no wheezing, clear to auscultation bilateral Cardiovascular: RRR Gastrointestinal: soft, non-tender, positive bowel sounds Musculoskeletal: no edema Neurological: non-focal, moves all 4 limbs Dx/Plan - Plan Plan: Acute Metabolic encephalopathy - A/O x2. CM working on placement - likely 2/2 UTI and rhabdo - s/p fluid and on IV antibiotics, as below - grossly normal neuro exam Complicated UTI, likely prostatitis - urine cx: psuedomonas, rueda sensitive - Switched from Rocephin to Cefepime on 12/11, switched to PO ciprofloxacin on 12/13 - Will continue Cipro for a total of 4wks given likely prostatitis. D/c 01/09/21. Rhabdomyolysis, resolved - CK 1415 > > > 98 - encourage PO intake. Gentle IVF if needed given previous fluid overload - AST elevation likely 2/2 rhabdo, resolved. Mild protein calorie malnutrition - started on mirtazipine, mighty shakes, and ensure high protein Fluid Overload, resolved - new O2 requirement with Xray concerning for CHF on 12/14 - euvolemic on exam - no longer has O2 requirement Indeterminate troponins - 2/2 rhabdo - EKG rate 70, SR with 1st degree block, No ST segment changes. No acute events on tele. 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 Continue abx for total of 4wks given likelihood of prostatitis.
[2020-12-21] MEDS: Levothyroxine 175 MCG TAB PO SCH (06:52)
[2020-12-21 07:39] LABS: ALT (SGPT) 32 U/L (8-55); AST (SGOT) 35 U/L (5-34); Albumin 2.9 g/dL (3.4-4.8); Alkaline Phosphatase 74 U/L (40-110); Anion Gap 11 mmol/L (10-20); BUN (Urea Nitrogen) 20 mg/dL (8.4-25.7); Bilirubin, Total 0.7 mg/dL (0.2-1.2); Calc. Creatinine Clearance 54 mL/min (70-130); Calcium 8.8 mg/dL (7.8-10.44); Carbon Dioxide 30 mmol/L (23-31); Chloride 100 mmol/L (98-107); Globulin 3.5 g/dL (2.4-3.5); Glucose 101 mg/dL (83-110); Potassium 4.6 mmol/L (3.5-5.1); Protein, Total 6.4 g/dL (5.8-8.1); Sodium 136 mmol/L (136-145)
[2020-12-21 07:51] LABS: #Basophils 0.1 thou/uL (0.0-0.2); #Eosinphils 0.2 thou/uL (0.0-0.7); #Lymphocytes 2.2 thou/uL (1.20-3.40); #Monocytes 0.9 thou/uL (0.11-0.59); #Neutrophils 6.2 thou/uL (1.40-6.50); %Basophils 0.9 % (0.0-1.0); %Eosinophils 2.5 % (0.0-10.0); %Lymphocytes 23.2 % (21.0-51.0); %Monocytes 9.3 % (0.0-10.0); %Neutrophils 64.1 % (42.0-75.0); Mean Corpuscular HGB CONC 31.6 g/dL (32.0-36.0); Mean Corpuscular Hemoglobin 31.8 pg (27.0-31.0); Mean Platelet Volume 6.9 fL (7.4-10.4); Platelet Count 512 thou/uL (130-400); RBC Distribution Width 12.1 % (11.5-14.5); Red Blood Cell (RBC) Count 3.77 mill/uL (4.70-6.10); White Blood Cell (WBC) Count 9.7 thou/uL (4.8-10.8)
[2020-12-21] MEDS: Amlodipine 5 MG TAB PO SCH (09:05)
[2020-12-21] MEDS: Polyethylene Glycol 3350 17 GM Packet PO SCH (09:05)
[2020-12-21] MEDS: Ciprofloxacin 500 MG TAB PO SCH ×2 (09:05→21:24)
[2020-12-21] MEDS ORDERED: hydrOXYzine 25 MG TAB PO PRN (14:03)
[2020-12-21] MEDS: Atorvastatin Calcium 10 MG TAB PO SCH (21:24)
[2020-12-21] MEDS: Melatonin 3 MG TAB PO PRN (21:24)
[2020-12-21] MEDS: Mirtazapine 15 MG Soltab PO SCH (21:24)
[2020-12-21] MEDS: Tamsulosin HCl 0.4 MG CAP PO SCH (21:24)
[2020-12-22] MEDS: Levothyroxine 175 MCG TAB PO SCH (05:42)
--- NOTE | 2020-12-22 06:09 | PDOC.FM ---
- Subjective Subjective: No acute events overnight. Patient resting comfortably in bed, no pain. Pending placement. - Objective MAR Reviewed: Yes Vital Signs & Weight: Vital Signs (12 hours) Temp Pulse Resp BP Pulse Ox 12/21/20 20:00 98.2 F 78 16 144/73 H 95 Weight Admit Weight 70.307 kg Weight 68.4 kg I&O: 12/20/20 12/21/20 12/22/20 06:59 06:59 06:59 Intake Total 120 480 Balance 120 480 Result Diagrams: 12/21/20 06:56 12/21/20 06:56 Phys Exam - Physical Examination Constitutional: NAD HEENT: moist MMs Respiratory: no wheezing, clear to auscultation bilateral Cardiovascular: RRR Gastrointestinal: soft, positive bowel sounds Musculoskeletal: no edema Neurological: non-focal Skin: no rash Dx/Plan - Plan Plan: Acute Metabolic encephalopathy - A/O x2. CM working on placement - likely 2/2 UTI and rhabdo - s/p fluid and on IV antibiotics, as below - grossly normal neuro exam Complicated UTI, likely prostatitis - urine cx: psuedomonas, rueda sensitive - Switched from Rocephin to Cefepime on 12/11, switched to PO ciprofloxacin on 12/13 - Will continue Cipro for a total of 4wks given likely prostatitis. D/c 01/09/21. Rhabdomyolysis, resolved - CK 1415 > > > 98 - encourage PO intake. Gentle IVF if needed given previous fluid overload - AST elevation likely 2/2 rhabdo, resolved. Mild protein calorie malnutrition - started on mirtazipine, mighty shakes, and ensure high protein Fluid Overload, resolved - new O2 requirement with Xray concerning for CHF on 12/14 - euvolemic on exam - no longer has O2 requirement Indeterminate troponins - 2/2 rhabdo - EKG rate 70, SR with 1st degree block, No ST segment changes. No acute events on tele. 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 Continue abx for total of 4wks given likelihood of prostatitis.
[2020-12-22] MEDS: Amlodipine 5 MG TAB PO SCH (09:31)
[2020-12-22] MEDS: Ciprofloxacin 500 MG TAB PO SCH ×2 (09:31→21:20)
[2020-12-22] MEDS: Polyethylene Glycol 3350 17 GM Packet PO SCH (09:31)
[2020-12-22] MEDS: Tamsulosin HCl 0.4 MG CAP PO SCH (21:20)
[2020-12-22] MEDS: Atorvastatin Calcium 10 MG TAB PO SCH (21:20)
[2020-12-22] MEDS: Melatonin 3 MG TAB PO PRN (21:20)
[2020-12-22] MEDS: Mirtazapine 15 MG Soltab PO SCH (21:20)
[2020-12-23] MEDS: Levothyroxine 175 MCG TAB PO SCH (07:20)
--- NOTE | 2020-12-23 07:57 | PDOC.FM ---
- Subjective Subjective: Patient sleeping comfortably in bed. Easily awoken. Denies pain. No acute events overnight. Per nursing, sundowning at night with easy reorientation. - Objective MAR Reviewed: Yes Vital Signs & Weight: Vital Signs (12 hours) Temp Pulse Resp BP Pulse Ox 12/23/20 07:25 98.1 F 78 18 119/68 92 L 12/22/20 20:00 94 L Weight Admit Weight 70.307 kg Weight 68 kg I&O: 12/22/20 12/23/20 12/24/20 06:59 06:59 06:59 Intake Total 480 600 Balance 480 600 Result Diagrams: 12/21/20 06:56 12/21/20 06:56 Phys Exam - Physical Examination Constitutional: NAD HEENT: moist MMs Respiratory: no wheezing, clear to auscultation bilateral Cardiovascular: RRR, no significant murmur Gastrointestinal: soft, non-tender Musculoskeletal: no edema Neurological: moves all 4 limbs Skin: no rash, normal turgor Dx/Plan - Plan Plan: Acute Metabolic encephalopathy, resolved - A/O x2 at baseline - likely 2/2 UTI and rhabdo - s/p fluid and on IV antibiotics, as below - grossly normal neuro exam Complicated UTI, likely prostatitis - urine cx: psuedomonas, rueda sensitive - Switched from Rocephin to Cefepime on 12/11, switched to PO ciprofloxacin on 12/13 - Will continue Cipro for a total of 4wks given likely prostatitis. D/c 01/09/21. Rhabdomyolysis, resolved - CK 1415 > > > 98 - encourage PO intake. Gentle IVF if needed given previous fluid overload - AST elevation likely 2/2 rhabdo, resolved. Mild protein calorie malnutrition - started on mirtazipine, mighty shakes, and ensure high protein Fluid Overload, resolved - new O2 requirement with Xray concerning for CHF on 12/14 - euvolemic on exam - no longer has O2 requirement Indeterminate troponins - 2/2 rhabdo - EKG rate 70, SR with 1st degree block, No ST segment changes. No acute events on tele. 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 Continue abx for total of 4wks given likelihood of prostatitis.
[2020-12-23] MEDS: Amlodipine 5 MG TAB PO SCH (08:21)
[2020-12-23] MEDS: Ciprofloxacin 500 MG TAB PO SCH ×2 (08:22→20:30)
[2020-12-23] MEDS: Polyethylene Glycol 3350 17 GM Packet PO SCH (08:22)
--- NOTE | 2020-12-23 11:41 | PQF ---
CLINICAL DOCUMENTATION CLARIFICATION FORM: Dear Dr. Liz Parrish / Dr. Sam Irizarry Date: 12-23-20 Please exercise your independent, professional judgment in responding to the clarification form. Clinical indicators are provided on the bottom of this form for your review. Please check appropriate box(es): HEART FAILURE: A. ACUITY [ ] Acute [ ] Acute on Chronic [ ] Chronic B. TYPE: [ ] Systolic / HFrEF [ ] Diastolic / HFpEF [ ] Combined Systolic / Diastolic [X] Fluid Overload without Heart Failure [ ] Other diagnosis [ ] Unable to determine For continuity of documentation, please document condition throughout progress notes and discharge summary. Thank You. To be completed by CDI/Coding staff for physician review: CLINICAL INDICATORS - SIGNS / SYMPTOMS / LABS / RESULTS AND LOCATION IN EMR Labs: BNP 1.25 263.4 1.25 PN (Francois): Increased O2 requirement 1.25 CXR: Congestive Heart Failure 1.26 PN (Francois): * fluid overload resolved * new O2 requirement w/ X Ray concerning for CHF on 12/14 * fluid stopped yesterday, responded to Lasix w/ > 5L output * No longer has O2 requirement RISKS FACTORS / RESULTS AND LOCATION IN EMR H&P (Light): Fall resulted in Rhabdo UTI TREATMENTS / RESULTS AND LOCATION IN EMR 1.25 PN (Francois): * CXR and BNP to evaluate for fluid overload * Add albuterol MAR: Lasix 20mg IVP 1.25 CDS Signature: Ashley Schilling RN, CCDS Phone #: [phone] This is a permanent part of the Medical Record [facility]
--- NOTE | 2020-12-23 12:05 | PQF ---
CLINICAL DOCUMENTATION CLARIFICATION FORM: Dear Dr. Liz Parrish / Dr. Sam Irizarry Date: 12-23-20 Please exercise your independent, professional judgment in responding to the clarification form. Clinical indicators are provided on the bottom of this form for your review. Please check appropriate box(es): [X] SD Type 2 due to traumatic Rhabdo [ ] SD Type 2 due to nontraumatic Rhabdo [ ] Traumatic Rhabdo without SD [ ] Nontraumatic Rhabdo without [ ] Insignificant lab value [ ] Other diagnosis [ ] Unable to determine For continuity of documentation, please document condition throughout progress notes and discharge summary. Thank You. To be completed by CDI/Coding staff for physician review: CLINICAL INDICATORS - SIGNS / SYMPTOMS / LABS / RESULTS AND LOCATION IN EMR LABS: Troponin I 1.21 @ 1123 0.200 1.21 @ 1431 0.162 1.21 @ 1724 0.168 1.21 H&P (Light): * No CP *Pleasantly demented *EKG shows no ST changes * Indeterminately elevated troponin most likely 2/2 acute illness, not chest pain will treat by treating illness 1.25 PN (Francois): *Increased O2 requirement *indeterminately elevated troponin 2/2 rhabdo RISKS FACTORS / RESULTS AND LOCATION IN EMR 1.21 H&P (Light): Fall resulted in Rhabdo - recurring falls and confusion x 1 week UTI TREATMENTS / RESULTS AND LOCATION IN EMR 1.21 H&P (Light): * ED: 2g Rocephin, 1L fluids Trend troponin MAR: Maxipime IV (1.22 1.24) Rocephin IV (1.22) Lactated Ringer IV (1.21 1.25) (1.27) CDS Signature: Ashley Schilling RN, CCDS Phone #: [phone] This is a permanent part of the Medical Record [facility]
[2020-12-23 12:49] VITALS: BMI 22.1
[2020-12-23] MEDS: Tamsulosin HCl 0.4 MG CAP PO SCH (20:30)
[2020-12-23] MEDS: Atorvastatin Calcium 10 MG TAB PO SCH (20:30)
[2020-12-23] MEDS: Melatonin 3 MG TAB PO PRN (20:31)
[2020-12-23] MEDS: Mirtazapine 15 MG Soltab PO SCH (20:31)
--- NOTE | 2020-12-24 05:55 | PDOC.FM ---
- Subjective Subjective: No acute events overnight. Patient's was able to visit yesterday and patient now has his glasses. No concerns this morning. Denies pain. - Objective MAR Reviewed: Yes Vital Signs & Weight: Vital Signs (12 hours) Temp Pulse Resp BP Pulse Ox 12/23/20 20:30 92 L 12/23/20 20:07 98.1 F 82 18 114/63 92 L Weight Admit Weight 70.307 kg Weight 68 kg I&O: 12/22/20 12/23/20 12/24/20 06:59 06:59 06:59 Intake Total 480 600 720 Output Total 200 Balance 480 600 520 Result Diagrams: 12/21/20 06:56 12/21/20 06:56 Phys Exam - Physical Examination Constitutional: NAD HEENT: moist MMs Neck: supple Respiratory: no wheezing, clear to auscultation bilateral Cardiovascular: RRR Gastrointestinal: soft, non-tender, positive bowel sounds Musculoskeletal: no edema Neurological: moves all 4 limbs Skin: no rash Dx/Plan - Plan Plan: Acute Metabolic encephalopathy, resolved - A/O x2 at baseline - likely 2/2 UTI and rhabdo - s/p fluid and on IV antibiotics, as below - grossly normal neuro exam Complicated UTI, likely prostatitis - urine cx: psuedomonas, rueda sensitive - Rocephin > Cefepime on 12/11 > PO ciprofloxacin on 12/13 - Cipro for a total of 4wks given likely prostatitis. D/c 01/09/21. Rhabdomyolysis, resolved Mild protein calorie malnutrition - started on mirtazipine, mighty shakes, and ensure high protein Fluid Overload, resolved Indeterminate troponins - 2/2 rhabdo - EKG rate 70, SR with 1st degree block, No ST segment changes. No acute events on tele. 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 Continue abx for total of 4wks given likelihood of prostatitis.
[2020-12-24] MEDS: Levothyroxine 175 MCG TAB PO SCH (06:27)
[2020-12-24] MEDS: Amlodipine 5 MG TAB PO SCH (10:19)
[2020-12-24] MEDS: Polyethylene Glycol 3350 17 GM Packet PO SCH (10:20)
[2020-12-24 17:43] VITALS: BP 122/63; TEMP 94
[2020-12-24] MEDS ORDERED: Ciprofloxacin 500 MG TAB PO SCH (20:00)
--- NOTE | 2020-12-26 20:26 | DIS ---
DATE OF ADMISSION: 12/10/2020 DATE OF DISCHARGE: 12/24/2020 RESIDENT: Liz Parrish MD. ADMITTING ATTENDING: Matthew Aly MD. DISCHARGE ATTENDING: Buck Zelaya MD. CONSULTS: Case Management, PT, OT, Speech. REPORT/IMAGES: 1. 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 Small amount of acute on chronic blood cannot be entirely excluded, but the hypo or hyperdensity running through the region most likely represents the venous structure. Right mastoid air cell opacification and middle ear opacification. 2. Cervical spine CT, no acute fractures or subluxation of the cervical spine. Stable right temporal bone fracture. Stable moderate cervical spondylosis. 3. Chest x-ray on 12/10/2020. No evidence of an acute cardiopulmonary process. 4. Chest x-ray on 12/14/2020, congestive heart failure, atherosclerosis. PRIMARY DIAGNOSES: 1. Acute metabolic encephalopathy. 2. Pseudomonas prostatitis. 3. Rhabdomyolysis. SECONDARY DIAGNOSES: 1. Mild protein-calorie malnutrition. 2. Fluid overload. 3. Indeterminate troponins. 4. Hypertension. 5. Hypothyroidism. 6. History of subarachnoid hemorrhage. 7. History of BPH. 8. History of gastroesophageal reflux disease. 9. History of dementia. DISCHARGE MEDICATIONS: 1. Omeprazole 20 mg p.o. daily. 2. Flomax 0.4 mg p.o. h.s. 3. Atorvastatin 10 mg p.o. q.p.m. 4. Zyrtec 10 mg p.o. daily p.r.n. 5. Levothyroxine 175 mcg p.o. q.a.m. 6. MiraLAX 17 g p.o. daily. 7. Senokot 2 tabs p.o. b.i.d. 8. Tramadol 50 mg p.o. q.6 hours p.r.n. 9. Tylenol 650 mg p.o. q.6 hours p.r.n. 10. Amlodipine 10 mg p.o. daily. 11. Ciprofloxacin 500 mg p.o. q.12 hours, to be continued for 16 more days. Discontinued medications: None. HISTORY OF PRESENT ILLNESS/HOSPITAL COURSE: The patient is an 85-year-old male with past medical history of hypertension, hyperlipidemia, recurrent UTI, BPH, chronic pain, hypothyroid, GERD, who presents to the ED from [facility] for recurring falls and confusion x1 week. The patient was recently discharged from the trauma service on 12/04, after he sustained a right temporal bone fracture leading to subdural hemorrhage, subarachnoid hemorrhage, and hemorrhage of internal auditory canal. Per residential report, the patient has been feeling weak, although the patient denies this in his own report. The patient is pleasantly demented and alert and oriented x2 at his baseline. During the patient's hospital stay, he was found to have acute metabolic encephalopathy secondary to a Pseudomonas UTI with likely prostatitis. He was originally treated with Rocephin, which was transitioned to cefepime on 12/11 and later deescalated to p.o. ciprofloxacin on 12/13. Due to the likely prostatitis, it was recommended that patient continue his antibiotics for a total of 4 weeks of treatment, to be discontinued on 01/09/2021. The patient was also found to have rhabdomyolysis with initial CK of 1415. The patient was resuscitated with IV fluids and became fluid overloaded during his stay. He responded appropriately to 20 mg of IV Lasix and was switched to p.o. intake. The patient's mild protein-calorie malnutrition was treated with mirtazapine, MightyShakes, and Ensure High Protein shakes. The patient's indeterminate troponin was likely secondary to an NSTEMI type 2, caused by rhabdomyolysis. His EKG showed sinus rhythm with a first-degree block, but no ST-segment changes. His troponin trended down during his stay and he had no acute events on telemetry monitoring. The patient was found to be hypertensive during his stay and was started on 10 mg of amlodipine with control of his pressures. The patient's hypothyroidism was found to be under treated and his TSH was 5.1. It was recommended that the patient does be managed in the outpatient setting. The patient's other chronic conditions were treated with his home medications. DISPOSITION: Stable. DISCHARGE INSTRUCTIONS: Discharge location: Inpatient rehab. Activity: As tolerated. Diet: No restrictions, supplement with MightyShakes, and Ensure High Protein. FOLLOWUP: Follow up with primary care provider in 7 days. Job ID: [id number]
--- NOTE | 2020-12-30 12:52 | EKG ---
Test Reason : Blood Pressure : / mmHG Vent. Rate : 070 BPM Atrial Rate : 070 BPM P-R Int : 234 ms QRS Dur : 086 ms QT Int : 434 ms P-R-T Axes : 081 025 067 degrees QTc Int : 468 ms Sinus rhythm with 1st degree A-V block Septal infarct , age undetermined Abnormal ECG Confirmed by ELAN FAUSTIN M.D. ([id number]), pictures editor NELSON TAVERA ([id number]) on 12/30/2020 12:52:38 PM Referred By: Confirmed By:ELAN FAUSTIN M.D.
== END 2020-12-24 18:50 | DRG 564 ==
LOC: ERS 10:58 → 2NO 13:44 → T4-A 12-18 15:38
PROVIDERS: ADMIT Emergency Medicine; ATTEND Emergency Medicine
DX: T79.6XXA Traumatic ischemia of muscle, initial encounter (principal); G93.41 Metabolic encephalopathy; I21.A1 Myocardial infarction type 2; N30.00 Acute cystitis without hematuria; E44.1 Mild protein-calorie malnutrition; F03.90 Unspecified dementia, unspecified severity, without behavioral disturbance, psychotic disturbance, mood disturbance, and anxiety; Z20.822 Contact with and (suspected) exposure to COVID-19; E78.5 Hyperlipidemia, unspecified; N40.0 Benign prostatic hyperplasia without lower urinary tract symptoms; M54.2 Cervicalgia; G89.29 Other chronic pain; E03.9 Hypothyroidism, unspecified; K21.9 Gastro-esophageal reflux disease without esophagitis; R29.6 Repeated falls; N41.9 Inflammatory disease of prostate, unspecified; B96.5 Pseudomonas (aeruginosa) (mallei) (pseudomallei) as the cause of diseases classified elsewhere; J45.909 Unspecified asthma, uncomplicated; E87.70 Fluid overload, unspecified; Z87.820 Personal history of traumatic brain injury; Z68.22 Body mass index [BMI] 22.0-22.9, adult; W19.XXXA Unspecified fall, initial encounter
CPT/HCPCS: 36415; 70450; 71045; 72125; 80053; 81003; 81015; 82550; 82553; 83605; 83880; 84443; 84484; 85025; 87040; 87077; 87086; 87186; 87635; 93005; 94640; 96374; J0360; J0692; J0696; J1940; J2060; J3490; J7611; U0003; U0005

== ENCOUNTER 2021-01-27 10:59 | Outpatient (CLI) | payer MEDICARE | END 2021-01-27 11:00 | disposition home or self-care (01) | LOC: BICCT 10:59 | PROVIDERS: ATTEND Neurological Surgery | DX: S06.6X0A Traumatic subarachnoid hemorrhage without loss of consciousness, initial encounter (principal) | CPT/HCPCS: 70450 ==

== ENCOUNTER 2021-03-09 04:52 | Observation (INO) | payer MEDICARE ==
[2021-03-09] MEDS ORDERED: Ketorolac Tromethamine 30 MG/ML VIAL ONE (05:42)
[2021-03-09 05:48] LABS: Bacteria/HPF None Seen HPF (None Seen); Bilirubin Negative (Negative); Blood, Urine Negative (Negative); Clarity Clear (Clear); Glucose, Urine (Dipstick) Normal (Negative); Ketone, Urine Trace mg/dL (Negative); Leukocyte Negative Leu/uL (Negative); Nitrite Negative (Negative); Protein, Urine (Dipstick) 50 mg/dL (Neg-Trace); RBC/HPF 0-3 HPF (0-3); Squamous Epithelial 0-3 HPF (0-3); Urobilinogen Normal mg/dL (Less than 2); WBC/HPF 0-3 HPF (0-3); pH, Urine 5.5 (5.0-9.0)
[2021-03-09 05:48] LABS: #Eosinphils 0.5 thou/uL (0.0-0.7); #Lymphocytes 1.4 thou/uL (1.20-3.40); #Monocytes 0.3 thou/uL (0.11-0.59); #Neutrophils 8.5 thou/uL (1.40-6.50); %Lymphocytes 12.8 % (21.0-51.0); %Neutrophils 79.2 % (42.0-75.0); Hemoglobin 11.6 g/dL (14.0-18.0); Mean Corpuscular HGB CONC 36.6 g/dL (32.0-36.0); Mean Corpuscular Hemoglobin 36.4 pg (27.0-31.0); Mean Corpuscular Volume 99.4 fL (78.0-98.0); Mean Platelet Volume 7.1 fL (7.4-10.4); Platelet Count 264 thou/uL (130-400); Red Blood Cell (RBC) Count 3.19 mill/uL (4.70-6.10); White Blood Cell (WBC) Count 10.8 thou/uL (4.8-10.8)
[2021-03-09 06:04] LABS: ALT (SGPT) 8 U/L (8-55); AST (SGOT) 12 U/L (5-34); Albumin 3.5 g/dL (3.4-4.8); Alkaline Phosphatase 80 U/L (40-110); Anion Gap 12 mmol/L (10-20); BUN (Urea Nitrogen) 15 mg/dL (8.4-25.7); Bilirubin, Total 0.7 mg/dL (0.2-1.2); Calc. Creatinine Clearance 0 mL/min (70-130); Calcium 9.3 mg/dL (7.8-10.44); Carbon Dioxide 28 mmol/L (23-31); Chloride 104 mmol/L (98-107); Glucose 106 mg/dL (83-110); Potassium 3.4 mmol/L (3.5-5.1); Protein, Total 6.5 g/dL (5.8-8.1); Sodium 141 mmol/L (136-145)
[2021-03-09 06:26] LABS: CKMB 1.2 ng/mL (0-6.6)
[2021-03-09] MEDS ORDERED: Nitrofurantoin Monohyd/M-Cryst 100 MG CAP PO SCH ×4 (09:00→22:15)
[2021-03-09] MEDS ORDERED: Iopamidol 370 76% 100 ML VIAL ONE (09:08)
[2021-03-09 09:49] LABS: SARS-CoV-2 NAA Rapid Test Not Detected (NotDetected)
[2021-03-09] MEDS ORDERED: traMADol HCl 50 MG TAB PO PRN (10:00)
[2021-03-09] MEDS ORDERED: Acetaminophen 500 MG TAB PO PRN (10:01)
[2021-03-09] MEDS ORDERED: Benzonatate 100 MG CAP PO PRN (10:01)
[2021-03-09] MEDS ORDERED: Cepastat Lozenges 1 LOZ PO PRN (10:01)
[2021-03-09] MEDS ORDERED: GUAIFENESIN SF SOLN 200 MG/10 ML UDCUP PO PRN (10:01)
[2021-03-09] MEDS ORDERED: Nitroglycerin 0.4 MG TAB (25 Tab Bottle) SL PRN (10:01)
[2021-03-09] MEDS ORDERED: Ondansetron PF 4 MG/2 ML Vial IVP PRN (10:01)
[2021-03-09] MEDS ORDERED: Calcium Carbonate 500 MG ChewTAB PO PRN (10:01)
[2021-03-09] MEDS ORDERED: Bisacodyl 10 MG SUPP PR PRN (10:01)
[2021-03-09 13:10] LABS: Troponin I 0.113 ng/mL (< 0.028)
[2021-03-09] MEDS ORDERED: Furosemide 40 MG/4 ML VIAL ONE (14:02)
[2021-03-09] MEDS: Furosemide 40 MG/4 ML VIAL SLOW IVP SCH (14:12)
[2021-03-09 19:47] VITALS: BMI 21.9
[2021-03-09] MEDS: Senokot S 8.6-50 MG TAB PO SCH (20:42)
[2021-03-09] MEDS: Tamsulosin HCl 0.4 MG CAP PO SCH (20:43)
[2021-03-10] MEDS: Ketorolac Tromethamine 30 MG/ML VIAL IVP SCH ×2 (04:05)
[2021-03-10] MEDS ORDERED: Ketorolac Tromethamine 30 MG/ML VIAL ONE (04:21)
[2021-03-10] MEDS: Furosemide 40 MG/4 ML VIAL SLOW IVP SCH ×2 (05:29→15:32)
[2021-03-10] MEDS ORDERED: Levothyroxine 175 MCG TAB PO SCH (06:00)
[2021-03-10] MEDS ORDERED: Ketorolac Tromethamine 30 MG/ML VIAL IVP PRN (06:09)
[2021-03-10 06:23] LABS: #Eosinphils 0.5 thou/uL (0.0-0.7); #Lymphocytes 0.4 thou/uL (1.20-3.40); #Monocytes 0.2 thou/uL (0.11-0.59); #Neutrophils 9.4 thou/uL (1.40-6.50); %Basophils 0.1 % (0.0-1.0); %Eosinophils 4.6 % (0.0-10.0); %Lymphocytes 3.4 % (21.0-51.0); %Monocytes 1.8 % (0.0-10.0); %Neutrophils 90.2 % (42.0-75.0); Hemoglobin 10.9 g/dL (14.0-18.0); Mean Corpuscular HGB CONC 36.1 g/dL (32.0-36.0); Mean Corpuscular Hemoglobin 35.8 pg (27.0-31.0); Mean Corpuscular Volume 99.1 fL (78.0-98.0); Mean Platelet Volume 7.1 fL (7.4-10.4); Platelet Count 237 thou/uL (130-400); RBC Distribution Width 14.3 % (11.5-14.5); Red Blood Cell (RBC) Count 3.04 mill/uL (4.70-6.10); White Blood Cell (WBC) Count 10.4 thou/uL (4.8-10.8)
[2021-03-10 06:44] LABS: ALT (SGPT) 8 U/L (8-55); AST (SGOT) 13 U/L (5-34); Alkaline Phosphatase 70 U/L (40-110); Anion Gap 12 mmol/L (10-20); BUN (Urea Nitrogen) 15 mg/dL (8.4-25.7); Bilirubin, Total 0.6 mg/dL (0.2-1.2); Calc. Creatinine Clearance 50 mL/min (70-130); Calcium 8.3 mg/dL (7.8-10.44); Carbon Dioxide 28 mmol/L (23-31); Chloride 102 mmol/L (98-107); Globulin 2.7 g/dL (2.4-3.5); Glucose 101 mg/dL (83-110); Protein, Total 5.7 g/dL (5.8-8.1); Sodium 139 mmol/L (136-145)
[2021-03-10 06:48] LABS: Potassium 2.9 mmol/L (3.5-5.1)
[2021-03-10] MEDS ORDERED: Potassium Chloride 20 MEQ TAB PO SCH (07:00)
[2021-03-10 07:50] LABS: Bacteria/HPF None Seen HPF (None Seen); Bilirubin Negative (Negative); Blood, Urine 1+ (Negative); Clarity Clear (Clear); Glucose, Urine (Dipstick) Normal (Negative); Ketone, Urine Trace mg/dL (Negative); Leukocyte Negative Leu/uL (Negative); Nitrite Negative (Negative); Protein, Urine (Dipstick) 30 mg/dL (Neg-Trace); RBC/HPF 0-3 HPF (0-3); Specific Gravity, Urine 1.016 (1.002-1.036); Squamous Epithelial None Seen HPF (0-3); Urobilinogen Normal mg/dL (Less than 2); pH, Urine 5.5 (5.0-9.0)
[2021-03-10] MEDS: Potassium Chloride 20 MEQ in Premix Bag 1 BAG IVPB SCH ×2 (08:19→12:14)
[2021-03-10] MEDS: Senokot S 8.6-50 MG TAB PO SCH ×2 (08:20→20:41)
[2021-03-10] MEDS ORDERED: Enoxaparin Sodium 40 MG/0.4 ML SYRINGE SC SCH (09:00)
[2021-03-10] MEDS ORDERED: Polyethylene Glycol 3350 17 GM Packet PO SCH (09:00)
[2021-03-10] MEDS ORDERED: Non-Formulary Item 1 EACH (Levothyroxine Sodium [Levothyroxine] 175 MCG Capsule) PO SCH (09:00)
[2021-03-10] MEDS ORDERED: Aspirin Chewable 81 MG TAB PO SCH (09:00)
[2021-03-10] MEDS: Potassium Chloride 20 MEQ TAB PO SCH ×2 (12:14→19:52)
[2021-03-10 19:53] VITALS: BP 128/60; TEMP 98.5
[2021-03-10] MEDS: Tamsulosin HCl 0.4 MG CAP PO SCH (20:42)
[2021-03-10] MEDS ORDERED: Nitrofurantoin Monohyd/M-Cryst 100 MG CAP PO SCH (21:00)
== END 2021-03-10 20:54 | disposition home or self-care (01) ==
LOC: ERS 04:52 → ERHOLD 09:30 → 2SW 18:07
PROVIDERS: ADMIT Internal Medicine; ATTEND Internal Medicine
DX: I11.0 Hypertensive heart disease with heart failure (principal); I50.31 Acute diastolic (congestive) heart failure; G30.9 Alzheimer's disease, unspecified; F02.81 Dementia in other diseases classified elsewhere, unspecified severity, with behavioral disturbance; N40.1 Benign prostatic hyperplasia with lower urinary tract symptoms; R35.0 Frequency of micturition; R09.02 Hypoxemia; N39.0 Urinary tract infection, site not specified; E03.9 Hypothyroidism, unspecified; K21.9 Gastro-esophageal reflux disease without esophagitis; E78.5 Hyperlipidemia, unspecified; J45.909 Unspecified asthma, uncomplicated; Z79.899 Other long term (current) drug therapy; Z95.5 Presence of coronary angioplasty implant and graft; Z88.5 Allergy status to narcotic agent; Z20.822 Contact with and (suspected) exposure to COVID-19
CPT/HCPCS: 0240U; 71045; 71275; 80053 ×2; 81001; 82553; 82962 ×2; 83605; 83735; 83880; 84484 ×2; 85025 ×2; 87040 ×2; 87086 ×2; 93005; 93306; 96365; 96366; 96372; 96374; 96375; 96376; 97116; 97139 ×2; 99285; G0378 ×3; 36415; 36416; 81003; 81015; J1650; J1885; J1940; J3480; Q9967

== ENCOUNTER 2021-06-24 13:51 | Outpatient (CLI) | payer MEDICARE | END 2021-06-24 13:52 | disposition home or self-care (01) | LOC: BICRAD 13:51 | PROVIDERS: ATTEND Internal Medicine | DX: M54.2 Cervicalgia (principal); M47.812 Spondylosis without myelopathy or radiculopathy, cervical region | CPT/HCPCS: 72040 ==